=== PATIENT | female | born 1995 | race Caucasian/White ===

== ENCOUNTER → 2018-06-02 14:49 | Outpatient (CLI) | payer BC, OTHER, MEDICAID, SELFPAY ==
--- NOTE | 2018-06-02 14:51 | DI.CT.S_ITS ---
PROCEDURE: CT KIDNEY URETER BLADDER (KUB) INDICATIONS: Right flank pain TECHNIQUE: Noncontrast 5 mm thick sections acquired from the diaphragms to the symphysis. 5 mm thick coronal and sagittal reformats were then performed. For radiation dose reduction, the following was used: automated exposure control, adjustment of mA and/or kV according to patient size. COMPARISON: None. FINDINGS: Image quality: Excellent. Lung bases: Lung bases are clear. Heart size is normal. Urinary system: Both kidneys are normal in size. No kidney stones. No hydronephrosis or perinephric fat stranding. Both ureters appear non-dilated throughout their expected courses. Bladder wall thickness is normal; no calcified bladder stones. Other solid organs: Liver is normal in size. Gallbladder is within normal limits. Pancreas is normal in contours. Spleen is normal in size. No adrenal nodules. Peritoneum and bowel: Unenhanced bowel loops demonstrate normal wall thickness and caliber. No free fluid or air. Appendix is visualized and is within normal limits. Mild fecal stasis throughout the colon is seen. Nodes and vessels: No retroperitoneal or mesenteric adenopathy by size criteria. Aorta and inferior vena cava are normal in caliber. Abdominal wall: No ventral hernias. Pelvis: No free pelvic fluid. No inguinal hernias or adenopathy. Bones: No suspicious bony lesions. No vertebral body compression fractures. IMPRESSION: 1. No renal stone or hydronephrosis. Normal appearing bilateral ureters or urinary bladder. 2. Normal appendix. No bowel traction. No free fluid or free air. Dictated by: Arsen Brennan M.D. on 06/02/2018 at 15:42 Approved by: Arsen Brennan M.D. on 06/02/2018 at 15:45
== END ==
PROVIDERS: PCP Physician Assistant; Visit Provider Physician Assistant
DX: R10.9 Unspecified abdominal pain (principal)
CPT/HCPCS: 74176

== ENCOUNTER → 2018-06-12 18:38 | Outpatient (CLI) | payer BC, OTHER, MEDICAID, SELFPAY ==
--- NOTE | 2018-06-12 18:39 | DI.MRI.S_ITS ---
PROCEDURE: MR HEAD/BRAIN WO CON INDICATIONS: VISUAL HALLUCINATIONS TECHNIQUE: Noncontrast axial T1 spin echo, axial T2 fast spin echo, sagittal and axial FLAIR, coronal T2 fast spin echo, axial gradient echo, axial diffusion and ADC through the brain. COMPARISON: None. FINDINGS: Image quality: Excellent. CSF Spaces: Basal cisterns are patent. No extra-axial fluid collections. Ventricles are normal in size and shape. Brain: No intracranial masses or hemorrhage. King/white matter interface is normal. Brainstem appears normal. Diffusion-weighted images demonstrate no acute ischemic insult. No chronic ischemic insults. No GRE weighted abnormalities are identified in the brain parenchyma. Normal intravascular flow voids are present. Skull and face: Calvarium has normal marrow signal. Orbits appear normal. Sinuses: Sinuses and mastoids are clear. IMPRESSION: 1. No intracranial disease process. 2. No abnormal intracranial mass. 3. No abnormal intracranial signal. Dictated by: Priyanka Green MD, PhD on 06/13/2018 at 7:30 Approved by: Priyanka Green MD, PhD on 06/13/2018 at 17:12
== END ==
PROVIDERS: PCP Physician Assistant; Visit Provider Psychiatry & Neurology Neurology
DX: R44.1 Visual hallucinations (principal)
CPT/HCPCS: 70551

== ENCOUNTER → 2018-06-27 13:13 | Outpatient (CLI) | payer BC, OTHER, MEDICAID, SELFPAY | PROVIDERS: PCP Physician Assistant; Visit Provider Physician Assistant | DX: N89.8 Other specified noninflammatory disorders of vagina (principal); N94.9 Unspecified condition associated with female genital organs and menstrual cycle | CPT/HCPCS: 87210 ==

== ENCOUNTER → 2019-02-19 20:31 | Outpatient (CLI) | payer BC, OTHER, MEDICAID, SELFPAY ==
--- NOTE | 2019-02-19 | DI.RAD.S_ITS ---
PROCEDURE: XR CERVICAL SPINE 2V OR 3V INDICATIONS: Pain of right upper extremity, upper extremity weakness TECHNIQUE: 3 view(s) of the cervical spine were acquired. COMPARISON: None. FINDINGS: Bones: No fractures or dislocations to the T1 level. The lateral masses of C1 appear intact on the odontoid view. No suspicious bony lesions. Soft tissues: No prevertebral soft tissue swelling. IMPRESSION: Normal for age, source of current extremity weakness symptoms is not seen. Dictated by: Mele Fernandez M.D. on 02/20/2019 at 8:43 Approved by: Mele Fernandez M.D. on 02/20/2019 at 8:46
== END ==
PROVIDERS: PCP Physician Assistant; Visit Provider Student in an Organized Health Care Education/Training Program
DX: M79.601 Pain in right arm (principal); R29.898 Other symptoms and signs involving the musculoskeletal system
CPT/HCPCS: 72040

== ENCOUNTER → 2019-07-10 12:35 | Outpatient (CLI) | payer BC, SELFPAY ==
--- NOTE | 2019-07-10 | DI.US.S_ITS ---
PROCEDURE: US PELVIC COMPLETE INDICATIONS: DYSMENORRHEA, UNSPECIFIED TECHNIQUE: Real-time scanning was performed of the pelvic organs, with image documentation. Additional endovaginal scanning was necessary due to incomplete visualization of the adnexal and endometrial structures by transabdominal scanning. COMPARISON: , , PELVIC COMPLETE, 01/30/2017, 9:39. , , PELVIC COMPLETE, 01/21/2015, 11:26. FINDINGS: Transabdominal scanning: Limited scanning through the kidneys shows no hydronephrosis. No pathologic free abdominal or pelvic fluid. Endovaginal scanning: Uterus: Uterus is normal in size at the 4.2 x 5.8 x 8.2 cm. The endometrium measures 7.3 mm in combined thickness. Ovaries: The right ovary measures 3.1 x 1.9 x 2.3 cm and contains a moderately complex cyst measuring up to 2.0 x 1.7 x 1.7 cm. The left ovary measures 3.4 x 1.5 x 1.5 cm and contains a small follicular cyst measuring 1.1 cm in maximal dimension. IMPRESSION: Normal endometrial lining, no abnormal endometrial mass or fluid collection. Moderately complex right ovarian cyst, measuring 2.0 cm in maximal dimension. Followup pelvic ultrasound in 6-8 weeks is recommended to confirm resolution of this finding. Dictated by: Mele Fernandez M.D. on 07/10/2019 at 15:03 Approved by: Mele Fernandez M.D. on 07/10/2019 at 15:05
== END ==
PROVIDERS: PCP Student in an Organized Health Care Education/Training Program; Referring Provider Student in an Organized Health Care Education/Training Program; Visit Provider Student in an Organized Health Care Education/Training Program
DX: N94.6 Dysmenorrhea, unspecified (principal); N83.291 Other ovarian cyst, right side; N83.02 Follicular cyst of left ovary
CPT/HCPCS: 76830; 76856

== ENCOUNTER → 2019-07-13 13:44 | Outpatient (CLI) | payer BC, SELFPAY ==
[2019-07-13 15:29] LABS: Cancer Antigen 125 14.4 U/mL (0-35)
== END ==
PROVIDERS: PCP Student in an Organized Health Care Education/Training Program; Referring Provider Student in an Organized Health Care Education/Training Program; Visit Provider Student in an Organized Health Care Education/Training Program
DX: Z12.73 Encounter for screening for malignant neoplasm of ovary (principal); N94.6 Dysmenorrhea, unspecified
CPT/HCPCS: 36415; 86304

== ENCOUNTER → 2019-08-21 10:37 | Outpatient (CLI) | payer BC, OTHER, MEDICAID, SELFPAY ==
--- NOTE | 2019-08-21 | DI.US.S_ITS ---
PROCEDURE: US PELVIC COMPLETE INDICATIONS: DYSMENORRHEA, UNSPECIFIED TECHNIQUE: Real-time scanning was performed of the pelvic organs, with image documentation. Additional endovaginal scanning was necessary due to incomplete visualization of the adnexal and endometrial structures by transabdominal scanning. COMPARISON: [facility], PELVIC COMPLETE, 01/30/2017, 9:39. [facility], PELVIC COMPLETE, 01/21/2015, 11:26. [facility], PELVIC COMPLETE, 09/24/2013, 13:44. [facility], PELVIC COMPLETE, 04/19/2008, 23:48. [facility], US PELVIC COMPLETE, 07/10/2019, 12:59. FINDINGS: Transabdominal scanning: A mild amount of free pelvic fluid is seen, which is considered to be within physiologic limits. Limited scanning through the kidneys shows no hydronephrosis. Endovaginal scanning: Uterus: Uterus is normal in size at 8.7 x 4.1 x 5.1 cm. The endometrium measures 1-2 mm in combined thickness. Ovaries: The right ovary measures 3.1 x 1.9 x 2 cm. The left ovary measures 2.8 x 1.5 x 1.8 cm. The ovaries have a normal sonographic appearance, with physiologic appearing follicular cysts seen on each side. No adnexal masses are seen. IMPRESSION: Pelvic ultrasound within normal limits. The previously seen right ovarian complex cyst is no longer seen. Dictated by: Polo Nielson M.D. on 08/21/2019 at 10:40 Approved by: Polo Nielson M.D. on 08/21/2019 at 10:42
== END ==
PROVIDERS: PCP Student in an Organized Health Care Education/Training Program; Referring Provider Student in an Organized Health Care Education/Training Program; Visit Provider Student in an Organized Health Care Education/Training Program
DX: N94.6 Dysmenorrhea, unspecified (principal)
CPT/HCPCS: 76830; 76856

== ENCOUNTER → 2019-09-28 19:18 | Outpatient (ROUT) | payer BC, OTHER, MEDICAID, SELFPAY ==
[2019-09-28 20:29] LABS: Add Manual Diff / Slide Review NO; Basophils Absolute Auto 100 /uL (0-100); Basophils Percent Auto 0.8 % (0-2); Eosinophils Absolute Auto 100 /uL (0-450); Eosinophils Percent Auto 1.6 % (2-4); Hematocrit 41.3 % (36-46); Hemoglobin 13.8 g/dL (12.0-16.0); Lymphocytes Absolute Auto 2000 /uL (1100-4500); Lymphocytes Percent Auto 27.2 % (25-40); Mean Corpuscular HGB Conc 33.4 % (30-36); Mean Corpuscular Hemoglobin 30.2 PG (26-34); Mean Corpuscular Volume 90.5 fL (80-100); Monocytes Absolute Auto 600 /uL (0-900); Neutrophils Absolute Auto 4600 /uL (1500-7000); Neutrophils Percent Auto 62.4 % (50-75); Platelet Count 250 X10^3/uL (150-400); Red Blood Cell Count 4.57 X10^6/uL (4.0-5.2); Red Cell Distribution Width 12.6 % (11.6-14.8); White Blood Cell Count 7.3 X10^3/uL (4.5-11.0)
[2019-09-28 20:41] LABS: Alanine Aminotransferase 12 IU/L (<35); Albumin 4.5 g/dL (3.5-5.0); Albumin Globulin Ratio 1.8 (1.0-2.8); Alkaline Phosphatase 62 U/L (38-126); Aspartate Aminotransferase 23 IU/L (14-36); BUN Creatinine Ratio 12.5 (6-22); Blood Urea Nitrogen 7 mg/dL (7-17); Calcium 10.1 mg/dL (8.4-10.2); Carbon Dioxide 26 mmol/L (22-32); Chloride 105 mmol/L (98-107); Estimated Glomerular Filt Rate > 60.0 mL/min (>60); Globulin 2.5 g/dL (1.7-4.1); Glucose 58 mg/dL (70-100); HEMOLYSIS < 15 (0-50); Potassium 4.1 mmol/L (3.4-5.1); Sodium 139 mmol/L (137-145)
[2019-09-28 21:08] LABS: TSH w/ Reflex to FT4 1.73 uIU/mL (0.47-4.68)
== END ==
PROVIDERS: PCP Student in an Organized Health Care Education/Training Program; Visit Provider Student in an Organized Health Care Education/Training Program
DX: R00.2 Palpitations (principal); R42 Dizziness and giddiness
CPT/HCPCS: 80053; 84443; 85025

== ENCOUNTER → 2020-04-28 09:03 | Outpatient (CLI) | payer OTHER, MEDICAID, SELFPAY ==
[2020-04-28 15:59] LABS: Rubella Antibody IgG 18.1 IU/mL (>15)
[2020-04-29 11:56] LABS: Mumps Virus IgG Antibody <9.0 AU/mL (Immune >10.9)
[2020-04-29 19:36] LABS: Varicella IgM Antibody <0.91 index (0.00-0.90)
[2020-05-01 21:36] LABS: QuantiFERON Mitogen Value 9.49 IU/mL (.); QuantiFERON Nil Value 0.13 IU/mL (.); QuantiFERON TB Gold Plus Negative (Negative); QuantiFERON TB1 Ag Value 0.22 IU/mL (.); QuantiFERON TB2 Ag Value 0.12 IU/mL (.)
[2020-05-03 20:52] LABS: Diphtheria IgG Ab 0.33 IU/mL (<0.10); Tetanus IgG Ab 1.83 IU/mL (<0.10)
== END ==
PROVIDERS: PCP Student in an Organized Health Care Education/Training Program; Referring Provider Student in an Organized Health Care Education/Training Program; Visit Provider Student in an Organized Health Care Education/Training Program
DX: Z11.59 Encounter for screening for other viral diseases (principal)
CPT/HCPCS: 36415; 86480; 86648; 86735; 86762; 86765; 86774; 86787; 87517

== ENCOUNTER → 2020-04-29 13:18 | Outpatient (CLI) | payer OTHER, MEDICAID, SELFPAY ==
[2020-04-29 14:48] LABS: Add Manual Diff / Slide Review NO; Basophils Absolute Auto 100 /uL (0-100); Basophils Percent Auto 0.7 % (0-2); Eosinophils Absolute Auto 100 /uL (0-450); Eosinophils Percent Auto 1.2 % (2-4); Hematocrit 39.8 % (36-46); Hemoglobin 13.6 g/dL (12.0-16.0); Lymphocytes Absolute Auto 1800 /uL (1100-4500); Lymphocytes Percent Auto 22.9 % (25-40); Mean Corpuscular HGB Conc 34.2 % (30-36); Mean Corpuscular Hemoglobin 30.5 PG (26-34); Mean Corpuscular Volume 89.2 fL (80-100); Monocytes Absolute Auto 700 /uL (0-900); Monocytes Percent Auto 8.6 % (3-14); Neutrophils Absolute Auto 5300 /uL (1500-7000); Neutrophils Percent Auto 66.6 % (50-75); Platelet Count 241 X10^3/uL (150-400); Red Blood Cell Count 4.47 X10^6/uL (4.0-5.2); Red Cell Distribution Width 13.4 % (11.6-14.8); White Blood Cell Count 7.9 X10^3/uL (4.5-11.0)
[2020-04-29 15:22] LABS: Alanine Aminotransferase 12 IU/L (<35); Albumin 4.6 g/dL (3.5-5.0); Albumin Globulin Ratio 1.6 (1.0-2.8); Alkaline Phosphatase 53 U/L (38-126); Amylase 115 U/L (30-110); Aspartate Aminotransferase 25 IU/L (14-36); BUN Creatinine Ratio 16.9 (6-22); Bilirubin Total 1.5 mg/dL (0.2-1.3); Blood Urea Nitrogen 10 mg/dL (7-17); Calcium 9.8 mg/dL (8.4-10.2); Carbon Dioxide 26 mmol/L (22-32); Chloride 104 mmol/L (98-107); Estimated Glomerular Filt Rate > 60.0 mL/min (>60); Globulin 2.8 g/dL (1.7-4.1); Glucose 90 mg/dL (70-100); HEMOLYSIS < 15 (0-50); Lipase 129 U/L (23-300); Potassium 4.1 mmol/L (3.4-5.1); Sodium 138 mmol/L (137-145); Total Protein 7.4 g/dL (6.3-8.2)
== END ==
PROVIDERS: PCP Student in an Organized Health Care Education/Training Program; Referring Provider Student in an Organized Health Care Education/Training Program; Visit Provider Student in an Organized Health Care Education/Training Program
DX: R10.9 Unspecified abdominal pain (principal)
CPT/HCPCS: 36415; 80053; 82150; 83690; 85025

== ENCOUNTER → 2020-05-03 15:20 | Outpatient (CLI) | payer OTHER, MEDICAID, SELFPAY ==
--- NOTE | 2020-05-03 | DI.CT.S_ITS ---
PROCEDURE: CT ABDOMEN PELVIS W CON INDICATIONS: unspecified abdominal pain TECHNIQUE: After the administration of oral and intravenous contrast, 5 mm thick sections acquired from the diaphragms to the symphysis. 5 mm thick coronal and sagittal reformats were performed. For radiation dose reduction, the following was used: automated exposure control, adjustment of mA and/or kV according to patient size. COMPARISON: [facility], US, US PELVIC COMPLETE, 08/21/2019, 10:55. [facility], US, US PELVIC COMPLETE, 07/10/2019, 12:59. [facility], US, US ABDOMEN COMPLETE, 09/01/2018, 17:39. [facility], CT, CT KIDNEY URETER BLADDER (KUB), 06/02/2018, 15:07. [facility], CT, ABDOMEN/PELVIS WITH CONTRAST, 05/23/2017, 8:34. FINDINGS: Image quality: Excellent. ABDOMEN: Lung bases: Lung bases are clear. Heart size is normal. Solid organs: Liver is normal in size and enhancement. Gallbladder is normal. Biliary system is non-dilated. Pancreas enhances normally. Spleen is normal in size and enhancement. No adrenal nodules. Kidneys are normal in size and enhancement, without hydronephrosis. Peritoneum and bowel: Stomach, small bowel, and colon loops are normal in caliber and wall thickness. There is a moderate amount of stool in colon. No free fluid or air. Nodes and vessels: No retroperitoneal or mesenteric adenopathy. Aorta and inferior vena cava are normal in caliber. Miscellaneous: No ventral hernias. PELVIS: Genitourinary: Bladder wall thickness is normal. There is fluid within the endometrial cavity, which could be related to menses. Ovaries are not well seen. No free fluid in pelvis. Miscellaneous: No inguinal hernias or adenopathy. Bones: No suspicious bony lesions. No vertebral body compression fractures. IMPRESSION: 1. Moderate amount of stool in colon 2. Otherwise normal exam. Dictated by: Tomasa Littlejohn M.D. on 05/03/2020 at 16:52 Approved by: Tomasa Littlejohn M.D. on 05/03/2020 at 17:55
== END ==
PROVIDERS: PCP Student in an Organized Health Care Education/Training Program; Referring Provider Student in an Organized Health Care Education/Training Program; Visit Provider Student in an Organized Health Care Education/Training Program
DX: R10.9 Unspecified abdominal pain (principal)
CPT/HCPCS: 74177; Q9967

== ENCOUNTER 2020-10-17 13:07 | Emergency (ER) | payer OTHER, MEDICAID, SELFPAY ==
--- NOTE | 2020-10-17 | DI.RAD.S_ITS ---
PROCEDURE: XR CHEST 2V INDICATIONS: SAYS CHEST PAIN FROM COVID SHOT (LAST WEEK) TECHNIQUE: 2 views of the chest were acquired. COMPARISON: [facility], , CHEST 2 VIEW, 12/30/2015, 13:57. FINDINGS: Surgical changes and devices: None. Lungs and pleura: Lungs are clear. No pleural effusions or pneumothorax. Mediastinum: Mediastinal contours are normal. Heart size is normal. Bones and chest wall: No suspicious bony abnormalities. Soft tissues appear unremarkable. IMPRESSION: No acute cardiopulmonary abnormality. Dictated by: Jamel Rudd M.D. on 10/17/2020 at 13:52 Approved by: Jamel Rudd M.D. on 10/17/2020 at 13:53
[2020-10-17 13:15] VITALS: BP 121/68; PULSE 66; RESP 18; TEMP 36.6; O2SAT 100; BMI 21.9
[2020-10-17 13:45] LABS: Add Manual Diff / Slide Review NO; Basophils Absolute Auto 100 /uL (0-100); Basophils Percent Auto 1.1 % (0-2); Eosinophils Absolute Auto 100 /uL (0-450); Eosinophils Percent Auto 1.2 % (2-4); Hemoglobin 13.8 g/dL (12.0-16.0); Lymphocytes Absolute Auto 2400 /uL (1100-4500); Lymphocytes Percent Auto 34.1 % (25-40); Mean Corpuscular HGB Conc 33.7 % (30-36); Mean Corpuscular Hemoglobin 30.3 PG (26-34); Mean Corpuscular Volume 89.9 fL (80-100); Monocytes Absolute Auto 700 /uL (0-900); Monocytes Percent Auto 9.4 % (3-14); Neutrophils Absolute Auto 3800 /uL (1500-7000); Neutrophils Percent Auto 54.2 % (50-75); Platelet Count 307 X10^3/uL (150-400); Red Blood Cell Count 4.56 X10^6/uL (4.0-5.2); Red Cell Distribution Width 12.7 % (11.6-14.8)
[2020-10-17 14:01] LABS: Alanine Aminotransferase 13 IU/L (<35); Albumin 4.8 g/dL (3.5-5.0); Albumin Globulin Ratio 1.5 (1.0-2.8); Alkaline Phosphatase 55 U/L (38-126); Aspartate Aminotransferase 27 IU/L (14-36); BUN Creatinine Ratio 21.4 (6-22); Bilirubin Total 1.8 mg/dL (0.2-1.3); Blood Urea Nitrogen 12 mg/dL (7-17); Calcium 10.1 mg/dL (8.4-10.2); Carbon Dioxide 26 mmol/L (22-32); Chloride 105 mmol/L (98-107); Creatine Kinase 53 U/L (30-135); Estimated Glomerular Filt Rate > 60.0 mL/min (>60); Globulin 3.1 g/dL (1.7-4.1); Glucose 84 mg/dL (70-100); HEMOLYSIS < 15 (0-50); Lipase 116 U/L (23-300); Potassium 3.9 mmol/L (3.4-5.1); Sodium 141 mmol/L (137-145); Total Protein 7.9 g/dL (6.3-8.2)
[2020-10-17 14:13] LABS: Troponin I < 0.012 ng/mL (0.01-0.034)
[2020-10-17 14:41] VITALS: BP 122/57; PULSE 61; RESP 17; O2SAT 100
[2020-10-17 14:42] VITALS: PULSE 59; O2SAT 100
[2020-10-17 15:00] VITALS: PULSE 68; O2SAT 100
--- NOTE | 2020-10-17 15:11 | ED_ITS ---
HPI - Chest Pain General Chief Complaint: Chest Pain Stated Complaint: Chest pain/SOB- post covid vac dose 2 Time Seen by Provider: 10/17/20 14:45 Source: patient Mode of arrival: Ambulatory History of Present Illness HPI narrative: Patient is a 25-year-old female. Approximately 10 days ago she received her 2nd Moderna COVID-19 vaccine. She stated that this morning she started having some chest discomfort and some shortness of breath. That has since gotten better. She has had issues with low blood pressure and tachycardia and passing out in the past but she did not pass out this morning. Has not tried anything for symptoms prior to arrival. She is under the care of cardiology. Related Data Home Medications Medication Instructions Recorded Confirmed No Known Home Medications 10/17/20 10/17/20 Previous Rx's Medication Instructions Recorded Breast Pump - Double Electric ea TD Q6H #1 10/12/16 Allergies Allergy/AdvReac Type Severity Reaction Status Date / Time Sulfa (Sulfonamide Allergy Severe SWOLLEN Verified 10/17/20 13:43 Antibiotics) THROAT [SULFA (SULFONAMIDE ANTIBIOTICS)] clindamycin [CLINDAMYCIN] Allergy Unknown SWELLING Verified 10/17/20 13:43 (HAPPENED WHEN SHE WAS A CHILD) Review of Systems Constitutional Constitutional: Denies fever(s) Cardiovascular Cardiovascular: Reports as per HPI Respiratory Respiratory: Reports as per HPI Gastrointestinal Gastrointestinal: Reports system reviewed and no additional complaints, except as documented Integumentary/Breasts Skin/Breast: Reports system reviewed and no additional complaints, except as documented Neurologic Neurologic: Reports system reviewed and no additional complaints, except as documented Hematologic/Lymphatic On Anticoagulants: No Patient History Medical History Alcohol intoxication Chronic fatigue Depression Suicidal ideation Social History Smoking Status: Never smoker Smoking Status: Never smoker alcohol intake frequency: a few times a month Substance Use Type: does not use Exam Initial Vital Signs Initial Vital Signs: Vital Signs Temperature 97.9 F 10/17/20 13:15 Pulse Rate 66 10/17/20 13:15 Respiratory Rate 18 10/17/20 13:15 Blood Pressure 121/68 10/17/20 13:15 Pulse Oximetry 100 10/17/20 13:15 Const General: cooperative and comfortable HENMT Head: normal to inspection and normocephalic Resp Effort & Inspection: normal respiratory effort Auscultation: clear to auscultation bilaterally Cardio Rate: regular rate Rhythm: regular rhythm GI Inspection: normal to inspection Skin General: no rashes or lesions noted Neuro General: patient alert, patient awake and moves all extremities Extrem General: normal to inspection and capillary refill normal Psych Appearance: grossly normal and well kempt Course Orders Ordered: ED Orders 10/17/20 13:24 EKG-12 Lead Stat 10/17/20 13:30 Complete Blood Count AUTO DIFF Stat Comprehensive Metabolic Panel Stat Lipase Stat Troponin & CK Cardiac Panel Stat Vital Signs Vital signs: Vital Signs - 8 hr 10/17/20 13:15 10/17/20 14:41 Temperature 97.9 F Pulse Rate 66 61 Respiratory Rate 18 17 Blood Pressure 121/68 122/57 L Pulse Oximetry 100 100 MDM - Chest Pain Lab Data Attestation: I reviewed the patient's lab results. Result diagrams: 10/17/20 13:30 10/17/20 13:30 Labs: Lab Results 10/17/20 10/17/20 Range/Units 13:30 13:30 WBC 7.0 (4.5-11.0) X10^3/uL RBC 4.56 (4.0-5.2) X10^6/uL Hgb 13.8 (12.0-16.0) g/dL Hct 41.0 (36-46) % MCV 89.9 (80-100) fL MCH 30.3 (26-34) PG MCHC 33.7 (30-36) % RDW 12.7 (11.6-14.8) % Plt Count 307 (150-400) X10^3/uL Neut % (Auto) 54.2 (50-75) % Lymph % (Auto) 34.1 (25-40) % [place] % (Auto) 9.4 (3-14) % Eos % (Auto) 1.2 L (2-4) % Baso % (Auto) 1.1 (0-2) % Neut # (Auto) 3800 (9261-6000) /uL Lymph # (Auto) 2400 (8627-2124) /uL [place] # (Auto) 700 (0-900) /uL Eos # (Auto) 100 (0-450) /uL Baso # (Auto) 100 (0-100) /uL Sodium 141 (137-145) mmol/L Potassium 3.9 (3.4-5.1) mmol/L Chloride 105 (98-107) mmol/L Carbon Dioxide 26 (22-32) mmol/L BUN 12 (7-17) mg/dL Creatinine 0.56 (0.52-1.04) mg/dL Estimated GFR > 60.0 (>60) mL/min BUN/Creatinine Ratio 21.4 (6-22) Glucose 84 (70-100) mg/dL Calcium 10.1 (8.4-10.2) mg/dL Total Bilirubin 1.8 H (0.2-1.3) mg/dL AST 27 (14-36) IU/L ALT 13 (<35) IU/L Alkaline Phosphatase 55 (38-126) U/L Total Creatine Kinase 53 (30-135) U/L CK-MB (CK-2) TNP CK-MB (CK-2) Rel Index TNP Troponin I < 0.012 (0.01-0.034) ng/mL Total Protein 7.9 (6.3-8.2) g/dL Albumin 4.8 (3.5-5.0) g/dL Globulin 3.1 (1.7-4.1) g/dL Albumin/Globulin Ratio 1.5 (1.0-2.8) Lipase 116 (23-300) U/L Imaging Data Chest x-ray: Radiologist's Impression: [address] [id number] ReportSigned Patient: Erica Ferrell LMR#: [id number]: [id number]:[id number]/Sex: 25 / FDate of Service: 10/17/20Loc: EDAccession Number: [id number] Procedure: XR chest 2V Ordering Provider: Eduardo Egan D.O. PROCEDURE: XR CHEST 2V INDICATIONS: SAYS CHEST PAIN FROM COVID SHOT (LAST WEEK) TECHNIQUE: 2 views of the chest were acquired. COMPARISON: [facility], CHEST 2 VIEW, 12/30/2015, 13:57. FINDINGS: Surgical changes and devices: None. Lungs and pleura: Lungs are clear. No pleural effusions or pneumothorax. Mediastinum: Mediastinal contours are normal. Heart size is normal. Bones and chest wall: No suspicious bony abnormalities. Soft tissues appear unremarkable. IMPRESSION: No acute cardiopulmonary abnormality. Dictated by: Jamel Rudd M.D. on 10/17/2020 at 13:52 Approved by: Jamel Rudd M.D. on 10/17/2020 at 13:53 ECG Data Attestation: I personally reviewed and interpreted this ECG as follows: Interpretation: Sinus rhythm Ventricular rate is 66 Normal axis Normal QRS Normal QTC Nonspecific ST T wave changes MDM Narrative Medical decision making narrative: Patient is nontoxic. Low suspicion for ACS. Chest x-ray EKG and labs unremarkable. Vital signs unremarkable. Consider pericarditis however her labs and EKG knee exam are not consistent with this. No indications for pneumonia. No indication for antibiotics. Provided reassurance to the patient. She was given return precautions. She expressed understanding and agreement. Discharge Plan Departure Patient Disposition: Home Clinical Impression: Atypical chest pain Instructions: DI for Atypical Chest Pain Activity Restrictions/Additional Instructions: Continue all of your medications as directed. Contact your primary doctor for follow-up. You can take anti-inflammatories for any discomfort. Return to the emergency department for any new or worsening symptoms Prescriptions: No Action Breast Pump - Double Electric TD Q6H Qty: 1 RF: 0 No Known Home Medications RF: 0
== END 2020-10-17 15:21 | disposition home or self-care (01) ==
PROVIDERS: Emergency Provider Emergency Medicine
DX: R07.89 Other chest pain (principal); R06.02 Shortness of breath
CPT/HCPCS: 36415; 71046; 80053; 82550; 83690; 84484; 85025; 93005; 93010; 99283; 99284

== ENCOUNTER → 2021-01-04 14:06 | Outpatient (CLI) | payer OTHER, MEDICAID, SELFPAY ==
--- NOTE | 2021-01-04 14:07 | DI.US.S_ITS ---
PROCEDURE: US PELVIC COMPLETE INDICATIONS: FEMALE INFERTILITY TECHNIQUE: Real-time scanning was performed of the pelvic organs, with image documentation. Additional endovaginal scanning was necessary due to incomplete visualization of the adnexal and endometrial structures by transabdominal scanning. COMPARISON: [facility], , US PELVIC COMPLETE, 08/21/2019, 10:55. FINDINGS: Uterus: Uterus is normal in size at 9.3 x 4.5 x 5.8 cm. The endometrium measures 13 mm in combined thickness. Homogeneous uterine echotexture. No focal uterine mass lesions. Uterus is anteverted. Ovaries: Right ovary measures 3.1 x 1.7 x 1.7 cm. No suspicious ovarian/adnexal mass. Left ovary measures 2.8 x 2.0 x 2.6 cm. There is a solid-appearing hypoechoic lesion in the left ovary measuring 1.5 x 1.2 x 1.7 cm. There is some mild peripheral vascularity. Other: No pathologic free abdominal or pelvic fluid. IMPRESSION: 1. A 1.5 x 1.2 x 1.7 cm solid lesion within the left ovary which may represent an endometrioma, hemorrhagic cyst, or dermoid. Recommend short interval follow-up pelvic ultrasound in 6-12 weeks to document stability versus resolution. 2. Otherwise, unremarkable sonographic evaluation of the pelvis. Dictated by: Zbigniew Cooney M.D. on 01/04/2021 at 15:27 Approved by: Zbigniew Cooney M.D. on 01/04/2021 at 15:36
== END ==
PROVIDERS: PCP Student in an Organized Health Care Education/Training Program; Referring Provider Student in an Organized Health Care Education/Training Program; Visit Provider Student in an Organized Health Care Education/Training Program
DX: N97.9 Female infertility, unspecified (principal); N83.9 Noninflammatory disorder of ovary, fallopian tube and broad ligament, unspecified
CPT/HCPCS: 76856

== ENCOUNTER → 2021-02-05 13:48 | Outpatient (CLI) | payer OTHER, MEDICAID, SELFPAY ==
--- NOTE | 2021-02-05 13:49 | DI.RAD.S_ITS ---
PROCEDURE: XR LUMBAR SPINE 2-3V INDICATIONS: hip pain TECHNIQUE: 3 views of the lumbar spine were acquired. COMPARISON: [facility], CT, CT ABDOMEN PELVIS W CON, 05/03/2020, 16:14. FINDINGS: Bones: 5 [id number] vertebrae are present. There is normal bony alignment. No vertebral body compression fractures. No suspicious bony lesions. Soft tissues: Overlying bowel gas pattern is normal. No suspicious soft tissue calcifications. IMPRESSION: No significant abnormality. Dictated by: David Pereyra M.D. on 02/06/2021 at 8:50 Approved by: David Pereyra M.D. on 02/06/2021 at 8:51
--- NOTE | 2021-02-05 13:49 | DI.RAD.S_ITS ---
PROCEDURE: XR HIP W PEL IF DONE RT 2V INDICATIONS: hip pain TECHNIQUE: AP pelvis with lateral view(s) of the right hip(s). COMPARISON: [facility], CT, CT ABDOMEN PELVIS W CON, 05/03/2020, 16:14. FINDINGS: Bones: No fractures or dislocations. Pelvic ring appears intact. No suspicious bony lesions. Soft tissues: The visualized bowel gas pattern is normal. Pelvic calcifications, likely representing phleboliths. IMPRESSION: No significant abnormality. Dictated by: David Pereyra M.D. on 02/06/2021 at 8:48 Approved by: David Pereyra M.D. on 02/06/2021 at 8:50
== END ==
PROVIDERS: PCP Student in an Organized Health Care Education/Training Program; Referring Provider Nurse Practitioner Family; Visit Provider Nurse Practitioner Family
DX: M25.551 Pain in right hip (principal); G89.29 Other chronic pain
CPT/HCPCS: 72100; 73502

== ENCOUNTER → 2021-02-20 18:00 | Outpatient (CLI) | payer OTHER, MEDICAID, SELFPAY ==
[2021-02-20 19:10] LABS: COVID19 -Nasal RAPID Negative (Negative)
== END ==
PROVIDERS: Visit Provider Physician Assistant
DX: Z20.822 Contact with and (suspected) exposure to COVID-19 (principal)
CPT/HCPCS: 87635

== ENCOUNTER 2021-03-15 14:54 | Outpatient (RCR) | payer OTHER, MEDICAID, SELFPAY ==
--- NOTE | 2021-03-15 16:19 | PT.OIE ---
Current Diagnoses Other chronic pain (03/15/21) Pain in right hip (03/15/21) Past Medical History (Last Reviewed 02/20/21 @ 18:11 by Denia Garcia PA-C) Alcohol intoxication Chronic fatigue Depression Suicidal ideation Visit Care Team Role Provider Type Margarita Bartholomew MD Primary Care Provider Non-Staff Specialty: Family Practice Address: [address] [place] [address], [phone] Email: WENDY Guerrero Attending Provider Physician Referring Provider Specialty: Family Practice Address: [facility], [facility] [place], [address] Phone: Fax: Email: [email or web address] Physical Therapy Initial Evaluation PT-OP-A Visit Information Start: 02/08/21 12:58 Freq: Status: Active Protocol: Document 03/15/21 15:15 DCW (Rec: 03/15/21 16:19 DCW [id number]) Out-Patient Physical Therapy Visit Information Visit Information Visit Type Initial Evaluation Visit Start Time 15:15 Visit Stop Time 15:45 Total Visit Minutes 30 Visit Number 1 Number of [employer] Visits 0 Evaluation Information Evaluation Date 03/15/21 PT-OP-B Current Condition Start: 02/08/21 12:58 Freq: Status: Active Protocol: Document 03/15/21 15:15 DCW (Rec: 03/15/21 16:19 DCW [id number]) Current Condition History of Current Condition Onset Date 10 year history Current Complaints Occasional right posterior hip pain History of Current Condition Pt is a 26 year old female presenting with a 10 year history of occasional right posterior hip pain. Reports she used to run on a treadmill a lot when in high school, and at one time felt like I got shot with an arrow in the hip, and couldn't get out of bed or move without pain for months. Ever since that time, pt get occasional flair-ups of pain in the same location. Her most recent flair-up was in January, which is when she got her referral for PT, however in the mean time she has done a course of steroids and feels quite a bit better. Pt was considering canceling, however decided it would be helpful to come to therapy and find out if there was anything she could do to either prevent it from recurring, or finding out what she should do if it does return. Prior Treatments and Tests Lumbar x-ray: IMPRESSION: No significant abnormality. per David Pereyra M.D. on R Hip x-ray: IMPRESSION: No significant abnormality. per David Pereyra M.D. on 02/06 Prior Functional Status Baseline Function- ADL's Independent Baseline Function- Mobility Independent PT-OP-C Subjective Start: 02/08/21 12:58 Freq: Status: Active Protocol: Document 03/15/21 15:15 DCW (Rec: 03/15/21 16:19 DCW [id number]) OP-PT Subjective Patient Comments Patient Comments There isn't really anything I seem to do that causes a flair-up, just walking around or sometimes turning in bed. Patient Reported Progress Improving Patient Questionnaires Lower Extremity Functional Scale LEFS Score 71/80 = 88.75% LEFS Impairment 1 to 19% Impaired (Score 63-79 ) OP-PT Pain Assessment Pain Assessment Grid Paper Pain Assessment Grid Completed Yes Location Right Posterior Hip Intensity 4 Scale Used Numeric (0 - 10) Variations/Patterns Can get as high as an 9/10 during flair-ups PT-OP-F Manual Assessment Start: 03/15/21 15:54 Freq: Status: Active Protocol: Document 03/15/21 15:15 DCW (Rec: 03/15/21 16:19 DCW [id number]) Manual Assessments Soft Tissue Assessment Soft Tissue Mobility Assessment Mild-moderate increased tone along right piriformis, tenderness to palpation 1/4: Complaint of pain. Joint Mobility Assessment Joint Mobility Assessment Passive motion of hip appears to be completely WNL PT-OP-K Range of Motion Start: 02/08/21 12:58 Freq: Status: Active Protocol: Document 03/15/21 15:15 DCW (Rec: 03/15/21 16:19 DCW [id number]) Lumbar Spine Range of Motion Lumbar Spine Active Comments Lumbar ROM entirely WNL Hip Goniometric Range of Motion Hip ROM Limitations Comments Right hip ROM WNL PT-OP-L Special Tests Start: 03/15/21 15:54 Freq: Status: Active Protocol: Document 03/15/21 15:15 DCW (Rec: 03/15/21 16:19 DCW [id number]) Special Tests Hip Special Tests Piriformis Test Results Mild note of some R tightness Lateral SI compression Test Results Negative Straight Leg Raise Test Results Negative Scour Test Test Results Negative Posterior Labral Test Test Results Negative Anterior Labral Test Test Results Negative PALAK Test Results Negative PT-OP-M Strength Start: 02/08/21 12:58 Freq: Status: Active Protocol: Document 03/15/21 15:15 DCW (Rec: 03/15/21 16:19 DCW [id number]) Hip Strength Hip Manual Muscle Testing Right Flexion (L2) 5 Normal Extension (S1) 5 Normal Abduction 5 Normal External Rotation 4 Good Internal Rotation 4 Good Left Flexion (L2) 5 Normal Extension (S1) 5 Normal Abduction 5 Normal External Rotation 5 Normal Internal Rotation 5 Normal PT-OP-Q Treatments Start: 02/08/21 12:58 Freq: Status: Active Protocol: Document 03/15/21 15:15 DCW (Rec: 03/15/21 16:19 DCW [id number]) Therapeutic Exercises Supine Exercises 1 Supine Exercise Name Piriformis stretch Side right Comments Knee to opposite shoulder, Figure-4 Sidelying Exercises 2 Sidelying Exercise Name Reverse clamshell Side right 1 Sidelying Exercise Name Clamshell Side right Sitting Exercises 2 Sitting Exercise Name Self-STM piriformis Equipment Used Tennis ball 1 Sitting Exercise Name Piriformis stretch Side right Comments Seated figure-4 PT-OP-T Assessment and Plan Start: 02/08/21 12:58 Freq: Status: Active Protocol: Document 03/15/21 15:15 DCW (Rec: 03/15/21 16:19 DCW [id number]) Physical Therapy Assessment Rehab Potential Rehabilitation Potential Excellent Evaluation Complexity Number of Personal Factors/Comorbidities 0 Number of Body Systems Impaired 1-2 Clinical Presentation at Evaluation Stable Impairments Impairments Soft Tissue Mobility,Strength, Tone Assessment Summary Assessment Pt presents today with a largely negative initial examination, may have some mild signs of involvement or right piriformis spasm. Does demonstrate some general weakness in right hip IR/ER, 4 /5 vs MMT testing of 5/5 in all other hip planes. Some mild-mod tone in right piriformis, may be experiencing infrequent piriformis spasm causing her posterior hip pain. Discussed difficulty performing differential diagnosis when she is not showing flair-ups, pt is understanding. Demonstrated and reviewed HEP involving piriformis stretching and strengthening to help try to prevent further spasm, or to improve mobility during flair-up. As pt currently is asymptomatic, unlikely to benefit from further skilled PT at this time, but pt is agreeable to return for a new evaluation if she does have another flair- up. Will keep chart open for ~ 2-3 weeks in case pt has any concerns or questions. Pt understands she will require a new referral in order to return after that. Physical Therapy Plan Frequency and Duration Frequency of Treatment Every Other Week Duration of Treatment Three weeks Plan of Care Start Date 03/15/21 Plan of Care End Date 04/05/21 Therapeutic Interventions Therapeutic Interventions Home Exercise Program,Patient/ Caregiver Education,Self-Care/ Home Management,Soft Tissue Mobilization,Therapeutic Exercises Next Visit Focus/Plan Next Note Type Treatment Note Next Visit Plan HEP, stretching, STM
--- NOTE | 2021-03-15 16:19 | PT.OPPOC ---
Physical, Occupational & Speech Therapy At [facility] Current Diagnoses Other chronic pain (03/15/21) Pain in right hip (03/15/21) Visit Care Team Role Provider Type Margarita Bartholomew MD Primary Care Provider Non-Staff Specialty: Family Practice Address: [facility] [place], [address] Email: WENDY Guerrero Attending Provider Physician Referring Provider Specialty: Family Practice Address: [facility], [facility], [place], [address] Phone: Fax: Email: [email or web address] Plan Of Care PT-OP-T Assessment and Plan Start: 02/08/21 12:58 Freq: Status: Active Protocol: Document 03/15/21 15:15 DCW (Rec: 03/15/21 16:19 DCW [id number]) Physical Therapy Assessment Rehab Potential Rehabilitation Potential Excellent Evaluation Complexity Number of Personal Factors/Comorbidities 0 Number of Body Systems Impaired 1-2 Clinical Presentation at Evaluation Stable Impairments Impairments Soft Tissue Mobility,Strength, Tone Assessment Summary Assessment Pt presents today with a largely negative initial examination, may have some mild signs of involvement or right piriformis spasm. Does demonstrate some general weakness in right hip IR/ER, 4 /5 vs MMT testing of 5/5 in all other hip planes. Some mild-mod tone in right piriformis, may be experiencing infrequent piriformis spasm causing her posterior hip pain. Discussed difficulty performing differential diagnosis when she is not showing flair-ups, pt is understanding. Demonstrated and reviewed HEP involving piriformis stretching and strengthening to help try to prevent further spasm, or to improve mobility during flair-up. As pt currently is asymptomatic, unlikely to benefit from further skilled PT at this time, but pt is agreeable to return for a new evaluation if she does have another flair- up. Will keep chart open for ~ 2-3 weeks in case pt has any concerns or questions. Pt understands she will require a new referral in order to return after that. Physical Therapy Plan Frequency and Duration Frequency of Treatment Every Other Week Duration of Treatment Three weeks Plan of Care Start Date 03/15/21 Plan of Care End Date 04/05/21 Therapeutic Interventions Therapeutic Interventions Home Exercise Program,Patient/ Caregiver Education,Self-Care/ Home Management,Soft Tissue Mobilization,Therapeutic Exercises Next Visit Focus/Plan Next Note Type Treatment Note Next Visit Plan HEP, stretching, STM Plan of Care Dates Plan of Care Start Date 03/15/21 Plan of Care End Date 04/05/21 Electronically Signed by: Ino Licea, PT 03/15/21 [id number] Please Sign and Return: I have reviewed this Plan of Care and certify that the skilled therapy services above are required to meet the patient?s needs. Physician Signature Date Printed Name and Credentials Clinical Instructor Signature Printed Name and Credentials
--- NOTE | 2021-03-15 16:21 | PT.OPPOC ---
Physical, Occupational & Speech Therapy At [facility] Current Diagnoses Other chronic pain (03/15/21) Pain in right hip (03/15/21) Visit Care Team Role Provider Type Margarita Bartholomew MD Primary Care Provider Non-Staff Specialty: Family Practice Address: [facility] [place], [address] Email: WENDY Guerrero Attending Provider Physician Referring Provider Specialty: Family Practice Address: [facility], [facility], [place], [address] Phone: Fax: Email: [email or web address] Plan Of Care PT-OP-T Assessment and Plan Start: 02/08/21 12:58 Freq: Status: Active Protocol: Document 03/15/21 15:15 DCW (Rec: 03/15/21 16:19 DCW [id number]) Physical Therapy Assessment Rehab Potential Rehabilitation Potential Excellent Evaluation Complexity Number of Personal Factors/Comorbidities 0 Number of Body Systems Impaired 1-2 Clinical Presentation at Evaluation Stable Impairments Impairments Soft Tissue Mobility,Strength, Tone Assessment Summary Assessment Pt presents today with a largely negative initial examination, may have some mild signs of involvement or right piriformis spasm. Does demonstrate some general weakness in right hip IR/ER, 4 /5 vs MMT testing of 5/5 in all other hip planes. Some mild-mod tone in right piriformis, may be experiencing infrequent piriformis spasm causing her posterior hip pain. Discussed difficulty performing differential diagnosis when she is not showing flair-ups, pt is understanding. Demonstrated and reviewed HEP involving piriformis stretching and strengthening to help try to prevent further spasm, or to improve mobility during flair-up. As pt currently is asymptomatic, unlikely to benefit from further skilled PT at this time, but pt is agreeable to return for a new evaluation if she does have another flair- up. Will keep chart open for ~ 2-3 weeks in case pt has any concerns or questions. Pt understands she will require a new referral in order to return after that. Physical Therapy Plan Frequency and Duration Frequency of Treatment Every Other Week Duration of Treatment Three weeks Plan of Care Start Date 03/15/21 Plan of Care End Date 04/05/21 Therapeutic Interventions Therapeutic Interventions Home Exercise Program,Patient/ Caregiver Education,Self-Care/ Home Management,Soft Tissue Mobilization,Therapeutic Exercises Next Visit Focus/Plan Next Note Type Treatment Note Next Visit Plan HEP, stretching, STM Plan of Care Dates Plan of Care Start Date 03/15/21 Plan of Care End Date 04/05/21 Electronically Signed by: Ino Licea, PT 03/15/21 [id number] Please Sign and Return: I have reviewed this Plan of Care and certify that the skilled therapy services above are required to meet the patient?s needs. Physician Signature Date Printed Name and Credentials Clinical Instructor Signature Printed Name and Credentials
--- NOTE | 2021-04-27 10:20 | PT.OPDS ---
Current Diagnoses Other chronic pain (03/15/21) Pain in right hip (03/15/21) Visit Care Team Role Provider Type Margarita Bartholomew MD Primary Care Provider Non-Staff Specialty: Family Practice Address: [facility] [place], [address] Email: WENDY Guerrero Attending Provider Physician Referring Provider Specialty: Family Practice Address: [address] [place] [address] [place], [address] Phone: Fax: Email: [email or web address] Visit Number 1 Discharge Summary PT-OP-B Current Condition Start: 02/08/21 12:58 Freq: Status: Active Protocol: Document 03/15/21 15:15 DCW (Rec: 03/15/21 16:19 DCW [id number]) Current Condition History of Current Condition Onset Date 10 year history Current Complaints Occasional right posterior hip pain History of Current Condition Pt is a 26 year old female presenting with a 10 year history of occasional right posterior hip pain. Reports she used to run on a treadmill a lot when in high school, and at one time felt like I got shot with an arrow in the hip, and couldn't get out of bed or move without pain for months. Ever since that time, pt get occasional flair-ups of pain in the same location. Her most recent flair-up was in January, which is when she got her referral for PT, however in the mean time she has done a course of steroids and feels quite a bit better. Pt was considering canceling, however decided it would be helpful to come to therapy and find out if there was anything she could do to either prevent it from recurring, or finding out what she should do if it does return. Prior Treatments and Tests Lumbar x-ray: IMPRESSION: No significant abnormality. per David Pereyra M.D. on R Hip x-ray: IMPRESSION: No significant abnormality. per David Pereyra M.D. on 02/06 Prior Functional Status Baseline Function- ADL's Independent Baseline Function- Mobility Independent PT-OP-C Subjective Start: 02/08/21 12:58 Freq: Status: Active Protocol: Document 03/15/21 15:15 DCW (Rec: 03/15/21 16:19 DCW [id number]) OP-PT Subjective Patient Comments Patient Comments There isn't really anything I seem to do that causes a flair-up, just walking around or sometimes turning in bed. Patient Reported Progress Improving Patient Questionnaires Lower Extremity Functional Scale LEFS Score 71/80 = 88.75% LEFS Impairment 1 to 19% Impaired (Score 63-79 ) OP-PT Pain Assessment Pain Assessment Grid Paper Pain Assessment Grid Completed Yes Location Right Posterior Hip Intensity 4 Scale Used Numeric (0 - 10) Variations/Patterns Can get as high as an 9/10 during flair-ups PT-OP-F Manual Assessment Start: 03/15/21 15:54 Freq: Status: Active Protocol: Document 03/15/21 15:15 DCW (Rec: 03/15/21 16:19 DCW [id number]) Manual Assessments Soft Tissue Assessment Soft Tissue Mobility Assessment Mild-moderate increased tone along right piriformis, tenderness to palpation 1/4: Complaint of pain. Joint Mobility Assessment Joint Mobility Assessment Passive motion of hip appears to be completely WNL PT-OP-K Range of Motion Start: 02/08/21 12:58 Freq: Status: Active Protocol: Document 03/15/21 15:15 DCW (Rec: 03/15/21 16:19 DCW [id number]) Lumbar Spine Range of Motion Lumbar Spine Active Comments Lumbar ROM entirely WNL Hip Goniometric Range of Motion Hip ROM Limitations Comments Right hip ROM WNL PT-OP-L Special Tests Start: 03/15/21 15:54 Freq: Status: Active Protocol: Document 03/15/21 15:15 DCW (Rec: 03/15/21 16:19 DCW [id number]) Special Tests Hip Special Tests Piriformis Test Results Mild note of some R tightness Lateral SI compression Test Results Negative Straight Leg Raise Test Results Negative Scour Test Test Results Negative Posterior Labral Test Test Results Negative Anterior Labral Test Test Results Negative PALAK Test Results Negative PT-OP-M Strength Start: 02/08/21 12:58 Freq: Status: Active Protocol: Document 03/15/21 15:15 DCW (Rec: 03/15/21 16:19 DCW [id number]) Hip Strength Hip Manual Muscle Testing Right Flexion (L2) 5 Normal Extension (S1) 5 Normal Abduction 5 Normal External Rotation 4 Good Internal Rotation 4 Good Left Flexion (L2) 5 Normal Extension (S1) 5 Normal Abduction 5 Normal External Rotation 5 Normal Internal Rotation 5 Normal PT-OP-T Assessment and Plan Start: 02/08/21 12:58 Freq: Status: Active Protocol: Document 04/27/21 10:18 DCW (Rec: 04/27/21 10:20 DCW [id number]) Physical Therapy Assessment Assessment Summary Assessment Pt was asymptomatic at the time of her eval, was unsure how to proceed. Instructed to return for follow-up in 2-3 weeks if symptoms returned. Pt has not called for follow-up in last 45 days, will be discharged from skilled PT at this time, and will require a new referral in order to return Physical Therapy Plan Discharge Physical Therapy Discharge Reasons No Longer Attending PT Next Visit Focus/Plan Next Note Type Discharge Summary
== END 2021-05-01 13:51 ==
LOC: PHYS 14:54
PROVIDERS: PCP Student in an Organized Health Care Education/Training Program; Referring Provider Nurse Practitioner Family; Visit Provider Nurse Practitioner Family
DX: M25.551 Pain in right hip (principal); G89.29 Other chronic pain
CPT/HCPCS: 97110; 97161

== ENCOUNTER → 2021-06-29 10:33 | Outpatient (ROUT) | payer OTHER, MEDICAID, SELFPAY ==
[2021-06-29 11:22] LABS: HCG Quantitative /Beta subunit 124.9 mIU/mL
[2021-06-29 11:36] LABS: Thyroid Stimulating Hormone 1.16 uIU/mL (0.47-4.68)
== END ==
PROVIDERS: PCP Student in an Organized Health Care Education/Training Program; Visit Provider Obstetrics & Gynecology Reproductive Endocrinology
DX: Z32.01 Encounter for pregnancy test, result positive (principal); Z13.29 Encounter for screening for other suspected endocrine disorder
CPT/HCPCS: 84443; 84702

== ENCOUNTER → 2021-07-03 14:29 | Outpatient (ROUT) | payer OTHER, MEDICAID, SELFPAY ==
[2021-07-03 14:59] LABS: HCG Quantitative /Beta subunit 562.3 mIU/mL
== END ==
PROVIDERS: Obstetrics & Gynecology Reproductive Endocrinology; PCP Student in an Organized Health Care Education/Training Program
DX: Z32.01 Encounter for pregnancy test, result positive (principal); Z13.29 Encounter for screening for other suspected endocrine disorder
CPT/HCPCS: 84702

== ENCOUNTER → 2021-08-14 12:48 | Outpatient (CLI) | payer OTHER, MEDICAID, SELFPAY ==
[2021-08-14 13:38] LABS: Add Manual Diff / Slide Review NO; Basophils Absolute Auto 100 /uL (0-100); Basophils Percent Auto 0.5 % (0-2); Eosinophils Absolute Auto 100 /uL (0-450); Eosinophils Percent Auto 0.5 % (2-4); Hematocrit 34.7 % (36-46); Hemoglobin 12.3 g/dL (12.0-16.0); Lymphocytes Absolute Auto 1700 /uL (1100-4500); Lymphocytes Percent Auto 15.9 % (25-40); Mean Corpuscular HGB Conc 35.5 % (30-36); Mean Corpuscular Hemoglobin 31.2 PG (26-34); Mean Corpuscular Volume 87.9 fL (80-100); Monocytes Absolute Auto 700 /uL (0-900); Monocytes Percent Auto 6.4 % (3-14); Neutrophils Absolute Auto 8400 /uL (1500-7000); Neutrophils Percent Auto 76.7 % (50-75); Platelet Count 253 X10^3/uL (150-400); Red Blood Cell Count 3.94 X10^6/uL (4.0-5.2); Red Cell Distribution Width 13.1 % (11.6-14.8); White Blood Cell Count 10.9 X10^3/uL (4.5-11.0)
[2021-08-14 13:43] LABS: Appearance Urine UA SL CLOUDY; Bilirubin Urine UA NEGATIVE (NEGATIVE); Color Urine UA YELLOW; Glucose Urine UA NEGATIVE (Negative); Ketones Urine UA NEGATIVE (NEGATIVE); Leukocyte Esterase Urine UA 1+ (NEGATIVE); Nitrite Urine UA NEGATIVE (Negative); Occult Blood Urine UA TRACE-LYSED (Negative); Protein Urine UA NEGATIVE (Negative); Specific Gravity Urine UA <=1.005 (1.000-1.035); Urobilinogen Urine UA 0.2 E.U./dL (0.2)
[2021-08-14 13:59] LABS: Bacteria Urine Few (2-10); RBC Urine None Seen (0-5/HPF); Squamous Epithelial Cell Urine 1-5 /HPF (0-5/HPF); WBC Urine 1-5/HPF (0-5/HPF)
[2021-08-14 16:18] LABS: Hepatitis B Surface Antigen NEGATIVE s/c (NEGATIVE)
[2021-08-14 16:33] LABS: HIV 1 & 2 Ab/Ag 4th Gen Combo NEGATIVE (NEGATIVE); Hep C Virus Ab w/Reflex Quant NEGATIVE s/c (NEGATIVE)
[2021-08-15 07:38] LABS: RPR Screen Non Reactive (Non Reactive)
[2021-08-15 08:24] LABS: Varicella IgG Antibody 671 index (Immune >165)
== END ==
PROVIDERS: PCP Student in an Organized Health Care Education/Training Program; Referring Provider Obstetrics & Gynecology; Visit Provider Obstetrics & Gynecology
DX: Z34.81 Encounter for supervision of other normal pregnancy, first trimester (principal)
CPT/HCPCS: 36415; 80055; 81003; 81015; 86787; 86803; 86850; 86900; 86901; 87086; 87389

== ENCOUNTER → 2021-08-21 12:24 | Outpatient (ROUT) | payer OTHER, MEDICAID, SELFPAY ==
[2021-08-21 23:09] LABS: Urine N gonorrhoeae NOT DETECTED
[2021-08-21 23:14] LABS: Urine Chlamydia NOT DETECTED
== END ==
PROVIDERS: PCP Student in an Organized Health Care Education/Training Program; Visit Provider Obstetrics & Gynecology
DX: Z34.81 Encounter for supervision of other normal pregnancy, first trimester (principal); Z3A.11 11 weeks gestation of pregnancy
CPT/HCPCS: 87491; 87591

== ENCOUNTER → 2021-09-21 11:43 | Outpatient (CLI) | payer OTHER, MEDICAID, SELFPAY | PROVIDERS: PCP Student in an Organized Health Care Education/Training Program; Visit Provider Obstetrics & Gynecology | DX: Z34.82 Encounter for supervision of other normal pregnancy, second trimester (principal); R10.2 Pelvic and perineal pain; R35.0 Frequency of micturition; Z3A.16 16 weeks gestation of pregnancy | CPT/HCPCS: 87086 ==

== ENCOUNTER → 2021-10-18 10:31 | Outpatient (CLI) | payer OTHER, MEDICAID, SELFPAY ==
--- NOTE | 2021-10-18 10:33 | DI.US.S_ITS ---
PROCEDURE: US OB >= 14 WEEKS FETUS INDICATIONS: ANATOMY OUTSIDE/PRIOR DATING DATA: Last menstrual period (LMP): 05/31/2021 LMP-based estimated date of delivery (YOBANY): 03/07/2022 First dating scan (date and location): 10/18/2021 Estimated date of delivery (YOBANY) from first dating scan: 03/03/2022. The calculations are made using the working YOBANY of 03/07/2022. TECHNIQUE: Real-time scanning was performed of the fetus, with image documentation and biometric measurements. Endovaginal scanning: Not performed. COMPARISON: None. FINDINGS: General: A single living intrauterine gestation is present. Presentation: Vertex Placenta: Placental position is posterior , without previa. Amniotic fluid index: 14.6 cm, normal range is 5-24 cm. Single deepest vertical pocket is 3.9 cm. heart rate: 153 beats per minute. Maternal cervical canal: 3.3 cm long. Normal lower limit is 2.5 cm. biometrics: Biparietal diameter: 4.8 cm Head circumference: 18.5 cm Abdominal circumference: 15.6 cm Femur length: 3.3 cm Clinically estimated gestational age: 20 weeks 0 days Composite gestational age from present scan: 20 weeks 4 days Estimated weight and percentile: 365 g, 79th percentile Anatomic survey: Neuro: Ventricles are non-dilated at less than 10 mm. Cisterna magna is normal at 3-11 mm. Cerebellum is normal in size and morphology. Nuchal skin fold: Normal at less than 6 mm between 14-21 weeks gestational age. Face: Nose and lips, facial profile are normal. Spine: No evidence for spina bifida. Heart: 4-chambered heart is present, with normal ventricular outflow tracts. Diaphragm: Diaphragm is intact. Stomach: Left-sided stomach is present. Kidneys: No hydronephrosis. Normal is less than 5 mm in 2nd trimester, less than 7 mm in 3rd trimester. Cord: 3-vessel cord has orthotopic insertion. Bladder: Normal in size. Extremities: All 4 extremities identified. IMPRESSION: Single living intrauterine gestation with average ultrasound age 20 weeks 4 days, consistent with clinical dates. Normal estimated weight and HERIBERTO. Normal anatomic survey. We strive to produce accurate, complete, and clear reports of imaging services. To assist us in improving patient care, this report was composed using standard report templates and voice recognition software. Therefore, it may contain abnormal punctuation, insertions and/or omissions. Occasional wrong-word or sound-alike substitutions may occur. Though we review the report and make efforts to correct it, we do recommend that the report be read carefully in proper context to recognize any text inaccuracies. Dictated by: Willard Olivares M.D. on 10/18/2021 at 21:19 Approved by: Willard Olivares M.D. on 10/18/2021 at 21:22
== END ==
PROVIDERS: PCP Student in an Organized Health Care Education/Training Program; Referring Provider Obstetrics & Gynecology; Visit Provider Obstetrics & Gynecology
DX: O26.899 Other specified pregnancy related conditions, unspecified trimester (principal); R10.9 Unspecified abdominal pain; R19.7 Diarrhea, unspecified; Z3A.20 20 weeks gestation of pregnancy
CPT/HCPCS: 76811; 87086

== ENCOUNTER → 2021-12-04 15:14 | Outpatient (CLI) | payer OTHER, MEDICAID, SELFPAY ==
[2021-12-06 04:44] LABS: Candida species Negative (Negative); Gardnerella vaginalis Negative (Negative); Trichomoas vaginalis Negative (Negative)
== END ==
PROVIDERS: Visit Provider Obstetrics & Gynecology
DX: N89.8 Other specified noninflammatory disorders of vagina (principal)
CPT/HCPCS: 87480; 87510; 87660

== ENCOUNTER → 2021-12-11 14:56 | Outpatient (CLI) | payer OTHER, MEDICAID, SELFPAY ==
[2021-12-11 17:30] LABS: Hematocrit 32.3 % (36-46); Hemoglobin 11.4 g/dL (12.0-16.0)
[2021-12-11 18:09] LABS: GTT (PREG) 1 Hour PP 50gm Dose 88 mg/dL (76-139)
[2021-12-11 18:54] LABS: TSH w/ Reflex to FT4 1.34 uIU/mL (0.47-4.68)
== END ==
PROVIDERS: Physician Assistant Medical; PCP Student in an Organized Health Care Education/Training Program; Referring Provider Obstetrics & Gynecology; Visit Provider Obstetrics & Gynecology
DX: O26.812 Pregnancy related exhaustion and fatigue, second trimester (principal); Z3A.26 26 weeks gestation of pregnancy
CPT/HCPCS: 36415; 82950; 84443; 85014; 85018

== ENCOUNTER 2021-12-26 17:14 | Outpatient (CLI) | payer OTHER, MEDICAID, SELFPAY ==
[2021-12-26 18:00] LABS: Appearance Urine UA CLEAR; Bilirubin Urine UA NEGATIVE (NEGATIVE); Color Urine UA YELLOW; Glucose Urine UA NEGATIVE (Negative); Ketones Urine UA NEGATIVE (NEGATIVE); Leukocyte Esterase Urine UA NEGATIVE (NEGATIVE); Nitrite Urine UA NEGATIVE (Negative); Occult Blood Urine UA TRACE-LYSED (Negative); Protein Urine UA NEGATIVE (Negative); Specific Gravity Urine UA 1.015 (1.000-1.035); Urobilinogen Urine UA 0.2 E.U./dL (0.2)
[2021-12-26 18:09] LABS: pH Urine UA 5.5 (4.5-8.0)
[2021-12-26 18:13] LABS: Bacteria Urine None Seen; Culture Indicated Urine Cult Not Indicated; RBC Urine None Seen (0-5/HPF); Squamous Epithelial Cell Urine 1-5 /HPF (0-5/HPF); WBC Urine None Seen (0-5/HPF)
--- NOTE | 2021-12-26 18:26 | PM.OBTRLD ---
Visit Information Visit Information Date of evaluation: 12/26/21 Primary OB Provider: Margo Garcia On-call OB Provider: Sari Alonzo Reason for Evaluation: Yes non-stress test non-stress test reason: other (Seeing spots) Vital Signs Vital Signs: Temperature 36.4? blood pressure 104/65 heart rate 91 [facility] Medical History (Updated 12/28/21 @ 08:24 by Sari Alonzo DO) Abdominal pain Abnormal Pap smear of cervix (~2014) Alcohol intoxication Anxiety and depression (~2015) Chicken pox (~1993) Chronic fatigue Dehydration Depression Elevated TSH Fibromyalgia (~2016) Headache Hypothyroidism (~2016) Infertility (~2020) Laceration of chin Migraine (~2015) Ovarian cyst (~2011) Painful menstrual periods (~2019) Right wrist sprain Suicidal ideation Viral syndrome Viral upper respiratory infection Viral URI Surgical History (Updated 09/16/21 @ 22:05 by Susu Lima) Anesthesia History of tonsillectomy S/P skin biopsy [place] teeth extracted Family History (Updated 09/16/21 @ 22:08 by Susu Lima) Grandmother Diabetes mellitus Lung cancer Grandfather Stroke Myocardial infarction Hypertension History of heart disease Grandfather Stroke Family/Other Malignant hyperthermia Multiple sclerosis Father Hypertension HPV (human papilloma virus) infection Cancer Mother Pre-diabetes Sister Mental health problem Social History marital status: number of children: 1 household members: spouse, children and other lives independently: Yes housing: house pets and animals: Yes (3 dogs, 1 cat, chickens) education level: college (some college, in nursing school currently) occupational status: employed and student 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) special yudith needs: No travel history: over 6 months ago seatbelt use: always helmet use: Yes water heater temp set < 120 deg: No (Will check and adjust) working smoke detector in home: Yes fire extinguisher in home: Yes carbon monox detector in home: Yes firearms in home: Yes firearms unloaded and locked: Yes do you feel safe at home: Yes Smoking Status: Never smoker second hand exposure: No alcohol intake: former substance use type: does not use during the past year weight has: remained stable well-balanced diet: about half the time daily servings fruits/ve-1 caffeine: Yes Type(s) of exercise: walking Objective Labs Labs: Laboratory Results - last 24 hr 12/26/21 17:41 Urine Color Yellow Urine Appearance Clear Urine pH 5.5 Ur Specific [place] 1.015 Urine Protein Negative Urine Glucose (UA) Negative Urine Ketones Negative Urine Occult Blood Trace-lysed Urine Nitrate Negative Urine Bilirubin Negative Urine Urobilinogen 0.2 Ur Leukocyte Esterase Negative Urine RBC None seen Urine WBC None seen Ur Squamous Epith Cells 1-5 /hpf Urine Bacteria None seen Ur Culture Indicated? Cult not indicated Evaluation Evaluation Baseline heart rate: 140 Variability: Moderate (11-25) monitor accelerations: Present Monitor Decelerations: Absent Category of Tracing: Reactive Diagnosis, Plan/Disposition Final Diagnosis (1) 29 weeks gestation of : Status: Acute Plan/Disposition Plan: 26-year-old at 29 weeks and 6 days gestation coming in due to an episode of seeing spots which resolved prior to arrival. Blood pressure is low suggesting possible orthostasis as a reason for lacks spots and lightheadedness. NST reactive. No concern for labor. Encouraged hydration. Follow-up as scheduled in clinic return to the center as needed. OB Disposition: home
== END 2021-12-26 19:10 | disposition home or self-care (01) ==
LOC: OB 12-29 16:43
PROVIDERS: PCP Student in an Organized Health Care Education/Training Program; Referring Provider Obstetrics & Gynecology; Visit Provider Obstetrics & Gynecology
DX: O26.893 Other specified pregnancy related conditions, third trimester (principal); H53.8 Other visual disturbances; R42 Dizziness and giddiness; Z3A.29 29 weeks gestation of pregnancy
CPT/HCPCS: 59025; 81001; G0378; G0379

== ENCOUNTER → 2022-01-03 16:19 | Outpatient (CLI) | payer OTHER, MEDICAID, SELFPAY ==
[2022-01-03 17:38] LABS: COVID19 -Nasal RAPID Negative (Negative)
== END ==
PROVIDERS: PCP Student in an Organized Health Care Education/Training Program; Visit Provider Obstetrics & Gynecology
DX: Z20.822 Contact with and (suspected) exposure to COVID-19 (principal); R05.9 Cough, unspecified
CPT/HCPCS: 87635

== ENCOUNTER → 2022-01-04 12:30 | Outpatient (CLI) | payer OTHER, MEDICAID, SELFPAY ==
[2022-01-04 14:25] LABS: Add Manual Diff / Slide Review NO; Basophils Absolute Auto 100 /uL (0-100); Basophils Percent Auto 0.5 % (0-2); Eosinophils Absolute Auto 100 /uL (0-450); Eosinophils Percent Auto 0.5 % (2-4); Hematocrit 33.8 % (36-46); Hemoglobin 11.9 g/dL (12.0-16.0); Lymphocytes Absolute Auto 2200 /uL (1100-4500); Lymphocytes Percent Auto 15.5 % (25-40); Mean Corpuscular HGB Conc 35.1 % (30-36); Mean Corpuscular Hemoglobin 31.7 PG (26-34); Mean Corpuscular Volume 90.2 fL (80-100); Monocytes Absolute Auto 1100 /uL (0-900); Monocytes Percent Auto 7.4 % (3-14); Neutrophils Absolute Auto 10900 /uL (1500-7000); Neutrophils Percent Auto 76.1 % (50-75); Platelet Count 243 X10^3/uL (150-400); Red Blood Cell Count 3.74 X10^6/uL (4.0-5.2); White Blood Cell Count 14.3 X10^3/uL (4.5-11.0)
[2022-01-04 15:01] LABS: Alanine Aminotransferase 15 IU/L (<35); Albumin 3.7 g/dL (3.5-5.0); Albumin Globulin Ratio 1.2 (1.0-2.8); Alkaline Phosphatase 116 U/L (38-126); Aspartate Aminotransferase 23 IU/L (14-36); BUN Creatinine Ratio 16.3 (6-22); Bilirubin Total 0.5 mg/dL (0.2-1.3); Blood Urea Nitrogen 7 mg/dL (7-17); Carbon Dioxide 23 mmol/L (22-32); Chloride 103 mmol/L (98-107); Estimated Glomerular Filt Rate > 60 mL/min (>60); Globulin 3.1 g/dL (1.7-4.1); Glucose 75 mg/dL (70-100); HEMOLYSIS 18 (0-50); Sodium 136 mmol/L (137-145); Total Protein 6.8 g/dL (6.3-8.2)
== END ==
PROVIDERS: PCP Student in an Organized Health Care Education/Training Program; Referring Provider Obstetrics & Gynecology; Visit Provider Obstetrics & Gynecology
DX: R06.00 Dyspnea, unspecified; R05.3 Chronic cough; Z3A.31 31 weeks gestation of pregnancy; O99.891 Other specified diseases and conditions complicating pregnancy
CPT/HCPCS: 36415; 80053; 85025

== ENCOUNTER → 2022-02-01 13:38 | Outpatient (CLI) | payer OTHER, MEDICAID, SELFPAY ==
[2022-02-02 15:55] LABS: Strep Grp B PCR NEG for Grp B Strep
[2022-02-03 09:30] LABS: Candida species Negative (Negative); Gardnerella vaginalis Negative (Negative); Trichomoas vaginalis Negative (Negative)
== END ==
PROVIDERS: Obstetrics & Gynecology; PCP Student in an Organized Health Care Education/Training Program; Visit Provider Physician Assistant Medical
DX: N89.8 Other specified noninflammatory disorders of vagina (principal); Z34.83 Encounter for supervision of other normal pregnancy, third trimester; Z3A.35 35 weeks gestation of pregnancy
CPT/HCPCS: 87480; 87510; 87653; 87660

== ENCOUNTER 2022-02-04 14:56 | Outpatient (CLI) | payer OTHER, MEDICAID, SELFPAY ==
--- NOTE | 2022-02-25 22:08 | PM.OBTRLD ---
Visit Information Visit Information Date of evaluation: 02/04/22 Primary OB Provider: Margo Garcia On-call OB Provider: Madiha Ordaz Reason for Evaluation: Yes non-stress test non-stress test reason: decreased movement [facility] Medical History (Updated 02/16/22 @ 14:46 by Geo Schmid MD) Abdominal pain Abnormal Pap smear of cervix (~2014) Alcohol intoxication Anxiety and depression (~2015) Chicken pox (~1993) Chronic fatigue Dehydration Depression Elevated TSH Fibromyalgia (~2016) Headache Hypothyroidism (~2016) Infertility (~2020) Laceration of chin Migraine (~2015) Ovarian cyst (~2011) Painful menstrual periods (~2019) Right wrist sprain Suicidal ideation Viral syndrome Viral upper respiratory infection Viral URI Surgical History (Updated 09/16/21 @ 22:05 by Susu Lima) Anesthesia History of tonsillectomy S/P skin biopsy [place] teeth extracted Family History (Updated 09/16/21 @ 22:08 by Susu Lima) Grandmother Diabetes mellitus Lung cancer Grandfather Stroke Myocardial infarction Hypertension History of heart disease Grandfather Stroke Family/Other Malignant hyperthermia Multiple sclerosis Father Hypertension HPV (human papilloma virus) infection Cancer Mother Pre-diabetes Sister Mental health problem Social History marital status: number of children: 1 household members: spouse, children and other lives independently: Yes housing: house pets and animals: Yes (3 dogs, 1 cat, chickens) education level: college (some college, in nursing school currently) occupational status: employed and student 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[employer], [place]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) special yudith needs: No travel history: over 6 months ago seatbelt use: always helmet use: Yes water heater temp set < 120 deg: No (Will check and adjust) working smoke detector in home: Yes fire extinguisher in home: Yes carbon monox detector in home: Yes firearms in home: Yes firearms unloaded and locked: Yes do you feel safe at home: Yes Smoking Status: Never smoker second hand exposure: No alcohol intake: former substance use type: does not use during the past year weight has: remained stable well-balanced diet: about half the time daily servings fruits/ve-1 caffeine: Yes Type(s) of exercise: walking Evaluation Evaluation Baseline heart rate: 140 Variability: Moderate (11-25) monitor accelerations: Present Monitor Decelerations: Absent Contraction Frequency (minutes): 0 Category of Tracing: Reactive Diagnosis, Plan/Disposition Plan/Disposition Plan: Assessment: 25-year-old 2 para 1 at 30-,6/7 weeks gestation decreased movement Reactive nonstress test Plan: Discharge to home kick counts discussed Follow-up as scheduled OB Disposition: home
== END 2022-02-04 15:50 | disposition home or self-care (01) ==
LOC: OB 02-08 16:06
PROVIDERS: PCP Student in an Organized Health Care Education/Training Program; Referring Provider Obstetrics & Gynecology; Visit Provider Obstetrics & Gynecology
DX: Z34.83 Encounter for supervision of other normal pregnancy, third trimester (principal); Z3A.35 35 weeks gestation of pregnancy
CPT/HCPCS: 59025; 84112; G0378; G0379

== ENCOUNTER → 2022-02-17 10:14 | Outpatient (CLI) | payer OTHER, MEDICAID, SELFPAY ==
[2022-02-17 11:52] LABS: Alanine Aminotransferase 21 IU/L (<35); Albumin 3.5 g/dL (3.5-5.0); Albumin Globulin Ratio 1.3 (1.0-2.8); Alkaline Phosphatase 201 U/L (38-126); Aspartate Aminotransferase 21 IU/L (14-36); Bilirubin Total 0.7 mg/dL (0.2-1.3); Bilirubin Unconjugated 0.8 mg/dL (0.0-1.1); Globulin 2.7 g/dL (1.7-4.1); HEMOLYSIS < 15 (0-50); Total Protein 6.2 g/dL (6.3-8.2)
== END ==
PROVIDERS: PCP Student in an Organized Health Care Education/Training Program; Referring Provider Obstetrics & Gynecology; Visit Provider Obstetrics & Gynecology
DX: R10.11 Right upper quadrant pain (principal)
CPT/HCPCS: 36415; 80076

== ENCOUNTER 2022-02-21 12:47 | Inpatient (IN) | payer OTHER, MEDICAID, SELFPAY ==
[2022-02-21] MEDS: LACTATED RINGERS 1,000 ML 100 ML IV ×2 (15:30→16:44)
--- NOTE | 2022-02-21 15:38 | PM.OBHP.1 ---
OB HPI Date/Time Date of admission: 02/21/22 Date Patient Seen: 02/21/22 Time Patient Seen: 15:38 History of Present Condition Chief complaint: Contractions : 3 Para: 1 Estimated Date of Delivery: 03/07/22 Estimated Gestational Age (weeks): 38+0 Narrative: Erica Ferrell is a 27 year old presenting earlier today with RUC and demonstrable cervical change who is admitted for labor and delivery. Patient's prior delivery was precipitous and highly traumatic for the patient. Her course has been largely uneventful with appropriate milestones and solid dating. GBS is negative. History of Present care: good care Dating criteria: LMP confirmed by 1st trimester US Ultrasounds: normal 1st trimester US and normal mid trimester US Obstetrical complications: none Medical complications: none Preadmission Labs Blood type: B (+) positive -: Antibody screen: negative, GBS status: negative, HBsAG: negative, HIV: negative and RPR/VDLR: negative -: Chlamydia screen: not detected and Gonorrhea screen: not detected -: Rubella: immune and Varicella: immune HCT: 33.8 HCAB: negative PAP: Normal Quad screen: Normal 1 hr GTT: 88 Prior (ies) History: x 1, precipitous delivery Evaluation Evaluation Baseline heart rate: 140 Variability: Moderate (11-25) monitor accelerations: Present Monitor Decelerations: Absent Contraction Frequency (minutes): 5 Uterine Contraction Intensity: Moderate Category of Tracing: Reactive Status: Category l Dilation (cm): 4 Effacement (%): 80 Dilation: 3-4 cm Effacement: >/=80% station: -1 Position of cervix: anterior Consistency: medium Leon score: 10 [facility] Medical History (Updated 02/16/22 @ 14:46 by Geo Schmid MD) Abdominal pain Abnormal Pap smear of cervix (~2014) Alcohol intoxication Anxiety and depression (~2015) Chicken pox (~1993) Chronic fatigue Dehydration Depression Elevated TSH Fibromyalgia (~2016) Headache Hypothyroidism (~2016) Infertility (~2020) Laceration of chin Migraine (~2015) Ovarian cyst (~2011) Painful menstrual periods (~2019) Right wrist sprain Suicidal ideation Viral syndrome Viral upper respiratory infection Viral URI Surgical History (Updated 09/16/21 @ 22:05 by Susu Lima) Anesthesia History of tonsillectomy S/P skin biopsy [place] teeth extracted Family History (Updated 09/16/21 @ 22:08 by Susu Lima) Grandmother Diabetes mellitus Lung cancer Grandfather Stroke Myocardial infarction Hypertension History of heart disease Grandfather Stroke Family/Other Malignant hyperthermia Multiple sclerosis Father Hypertension HPV (human papilloma virus) infection Cancer Mother Pre-diabetes Sister Mental health problem Social History marital status: number of children: 1 household members: spouse, children and other lives independently: Yes housing: house pets and animals: Yes (3 dogs, 1 cat, chickens) education level: college (some college, in nursing school currently) occupational status: employed and 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) special yudith needs: No travel history: over 6 months ago seatbelt use: always helmet use: Yes water heater temp set < 120 deg: No (Will check and adjust) working smoke detector in home: Yes fire extinguisher in home: Yes carbon monox detector in home: Yes firearms in home: Yes firearms unloaded and locked: Yes do you feel safe at home: Yes Smoking Status: Never smoker second hand exposure: No alcohol intake: former substance use type: does not use during the past year weight has: remained stable well-balanced diet: about half the time daily servings fruits/ve-1 caffeine: Yes Type(s) of exercise: walking Meds Home Medications and Allergies Home Medications Medication Instructions Recorded Confirmed Type prenat.vits,shiva,ogl-vokh-xweka 1 tab PO DAILY 08/02/21 02/21/22 History Allergies Allergy/AdvReac Type Severity Reaction Status Date / Time Sulfa (Sulfonamide Allergy Severe SWOLLEN Verified 02/15/22 11:46 Antibiotics) THROAT [SULFA (SULFONAMIDE ANTIBIOTICS)] OB Exam HENMT Head: normal to inspection, normocephalic and atraumatic Eyes General: appearance normal, both eyes and all related structures Resp Effort & Inspection: normal respiratory effort and able to speak in complete sentences Auscultation: clear to auscultation bilaterally Cardio Rate: regular rate Rhythm: regular rhythm Heart Sounds: S1 normal, S2 normal and no murmurs Extremities Lower extremity: Yes normal to inspection GI Inspection: normal to inspection Palpation: Yes soft and Yes no hepatosplenomegaly Uterus Location (Fundal Height): 38 Presentation: vertex Estimated Weight (lbs): 8 Amniotic Fluid: clear Other: AROM performed 1700, SHAUNA in place Objective Labs Result Diagrams: 02/21/22 15:00 Assessment and Plan Assessment and Plan Assessment and Plan narrative: ASSESSMENT 1. Intrauterine , 38+0 wks EGA in early labor 2. History of precipitous labor and delivery 3. GBS negative status PLAN 1. Admit for delivery 2. See orders
[2022-02-21 15:41] VITALS: BP 119/74
[2022-02-21 15:58] LABS: Add Manual Diff / Slide Review NO; Basophils Absolute Auto 100 /uL (0-100); Basophils Percent Auto 0.4 % (0-2); Eosinophils Absolute Auto 100 /uL (0-450); Eosinophils Percent Auto 0.4 % (2-4); Hematocrit 36.9 % (36-46); Hemoglobin 12.6 g/dL (12.0-16.0); Lymphocytes Absolute Auto 2300 /uL (1100-4500); Lymphocytes Percent Auto 15.2 % (25-40); Mean Corpuscular HGB Conc 34.2 % (30-36); Mean Corpuscular Volume 90.7 fL (80-100); Monocytes Absolute Auto 1200 /uL (0-900); Monocytes Percent Auto 7.7 % (3-14); Neutrophils Absolute Auto 11800 /uL (1500-7000); Neutrophils Percent Auto 76.3 % (50-75); Platelet Count 251 X10^3/uL (150-400); Red Blood Cell Count 4.07 X10^6/uL (4.0-5.2); Red Cell Distribution Width 13.4 % (11.6-14.8); White Blood Cell Count 15.4 X10^3/uL (4.5-11.0)
[2022-02-21 16:11] LABS: COVID19 -Nasal RAPID Negative (Negative)
[2022-02-21] MEDS: FENT 2MCG/ML BUPIV 0.125% EPI 200 MCG/100 ML PLAST..BAG 6 MCG EPIDURAL (16:45)
--- NOTE | 2022-02-21 20:20 | PM.OBPRVD ---
Labor & Delivery Delivery date: 02/21/22 Intrapartal Events: None Cervical ripening method: none Induction method: none Delivery augmentation: rupture of membranes Delivery monitor: external FHT and external uterine Route of delivery: Episiotomy description: None L&D Laceration Description: Perineal - 1st Degree Delivery repair: chromic Estimated blood loss (mL): 100 Anesthesia Type: Epidural Complications: none Baby 1: gender: Male Presentation: vertex Position: Right Occiput Anterior Placenta delivery description: Spontaneous Cord Vessel Description: 3 Vessels score (1 min): 9 score (5 min): 9 weight: 6 lb 13.984 oz Narrative: Patient presented in early labor at 38wk3d. She received an epidural for anesthesia. She had artificial ruptured membranes at 4 cm for augmentation of labor. She progressed over the next few hours to completely dilated. With 1 push she brought the head to near the introitus. She was prepped and draped for delivery. She had a spontaneous vaginal delivery with pushing over the next 2 contractions. Head was delivered in a controlled fashion. Anterior and posterior shoulders were delivered with ease with the patient pushing, followed by the remainder of the body. No nuchal cord was present. A vigorous baby boy delivered and placed on the maternal abdomen. After 1 minute cord was clamped and cut. The placenta delivered spontaneously few minutes later. She had minimal bleeding after placental delivery. She had a small first-degree perineal laceration which was repaired in the usual fashion with 3-0 chromic. Epidural anesthesia was adequate for the repair. Plan for aftercare: Routine care
[2022-02-22] MEDS: IBUPROFEN 600 MG TABLET PO ×3 (02:58→14:28)
[2022-02-22] MEDS: ACETAMINOPHEN 325 MG TABLET 650 MG PO ×3 (02:58→14:27)
[2022-02-22] MEDS: OXYCODONE IR 5 MG TABLET PO ×5 (05:49→17:35)
[2022-02-22] MEDS: PRENATAL VIT,CALC/IRON/FOLIC 1 TABLET 1 TAB PO (08:38)
--- NOTE | 2022-02-22 13:55 | DI.CT.S_ITS ---
PROCEDURE: CT ABDOMEN PELVIS WO CON INDICATIONS: Unrelenting abdominal, pelvic, and back pain post- TECHNIQUE: Axial sections were acquired from the lung bases to the pubic symphysis. Coronal and sagittal reformats were performed. For radiation dose reduction, the following was used: automated exposure control, adjustment of mA and/or kV according to patient size. COMPARISON: [facility], CT, CT ABDOMEN PELVIS W CON, 05/03/2020, 16:14. FINDINGS: Image quality: Excellent. Lung bases: Unremarkable. Heart: No significant findings. URINARY: Right Kidney: Tiny punctate density in the right kidney may represent a 1 mm nonobstructing stone. This is seen on image 29/series 2. Otherwise, no hydronephrosis. No perinephric stranding. Right Ureter: Right ureter is normal in course and caliber. No ureteral stone. Left Kidney: No stones or hydronephrosis. Left Ureter: No hydroureter. Bladder: Normal wall thickness. No stones. ABDOMEN: Liver: Unremarkable. Gallbladder: Unremarkable. Biliary ducts: Unremarkable. Pancreas: Unremarkable. Spleen: Unremarkable. Adrenal Glands: Unremarkable. Stomach and Bowel: Stomach, small bowel loops, and colon are unremarkable. Peritoneum: No abnormal intraperitoneal fluid. No free air. Ventral Wall: There is a fat-containing umbilical hernia without acute inflammation. Abdominal Nodes: No enlarged retroperitoneal or mesenteric lymph nodes. Vessels: Aorta and inferior vena cava are normal in size. PELVIS: Pelvic Organs: The uterus is enlarged with soft tissue prominence of the vaginal vault compatible with changes. Pelvic Nodes: Unremarkable. Miscellaneous: No inguinal hernias are seen. Bones: Unremarkable. IMPRESSION: 1. CT abdomen and pelvis without acute abnormalities to explain patient's symptoms. 2. changes/appearance of the uterus and vaginal vault. 3. Possible tiny punctate 1 mm nonobstructing right renal stone. Dictated by: Zbigniew Cooney M.D. on 02/22/2022 at 14:30 Approved by: Zbigniew Cooney M.D. on 02/22/2022 at 14:41
--- NOTE | 2022-02-22 16:29 | P.PNOB_ITS ---
Subjective - OB Subjective Patient comments: other [place] baby status: doing well Date Patient Seen: 02/22/22 Time Patient Seen: 16:00 Objective Labs Result Diagrams: 02/21/22 15:00 Labs: Laboratory Results - last 24 hr 02/21/22 15:00 Blood Type B Positive Antibody Screen Negative Assessment & Plan Time Spent With Patient Time: Total time spent is greater than 50% in coordination of care (as documented) at patient's floor/unit and/or counseling patient:
--- NOTE | 2022-02-22 18:03 | P.DS_ITS ---
Discharge Providers Provider Date of admission: 02/21/22 12:47 Discharge Date: 01/23/22 Primary care physician: Margarita Bartholomew MD Consults: 02/22/22 20:23 Consult to [employer] Consultant Routine Comment: Discharge provider: Margo Garcia MD Summary Hospital Course Date Patient Seen: 02/22/22 Time Patient Seen: 17:30 Diagnoses: 38 week , delivered Spontaneous labor Hospital Course: 27 yo female?presented in early labor at EGA 38wk3d.? She had a history of a prior precipitous labor and delivery. She received an epidural for anesthesia. ?She had artificial? ruptured membranes at 4 cm for augmentation of labor.? She progressed over the next few hours to completely dilated. ? With 1 push she brought the head to near the introitus.? She had a spontaneous vaginal delivery with pushing over the next 2 contractions.? A vigorous baby boy delivered weighing 6 lb 13.9 oz with Apgars of 9 and 9. and? The? placenta delivered spontaneously few minutes later.? She had minimal bleeding after placental delivery and continued with normal lochia . She had a small first-degree perineal laceration which was repaired. A few hours she develops severe cramping and some discomfort her epidural site, both improved after oxycodone. However cramping returned And today on day 1 she reported severe cramping and radiating to upper abdomen. CT scan was ordered to rule out any pathology. Visiting with her this evening I reviewed that the CT scan was normal. There was an incidental finding of a 1 mm nonobstructing renal stone. By description her cramping appears to be severe uterine cramping that can occur with multiparity, appears consistent as it was much worse with such that she was now doing some bottle feeding. Patient reassured that the discomfort should gradually improve, in the interim can treat with ibuprofen and oxycodone. She reports normal lochia. Denies other problems. Urinating without a problem. When , it is going well. Within the hour after seeing her, with cramping somewhat decreased in reassured with the normal CT scan findings, she decided she did desire discharge to home on day 1. Baby was doing well and was ready for discharge. She was discharged to home with routine follow-up in 6 weeks for routine visit, earlier prn. \ Peripartum Data Infant Delivery Method: Natural Vaginal Laceration Description: Perineal - 1st Degree Episiotomy description: None Procedures: Epidural anesthesia placed by anesthesiologist Spontaneous vaginal delivery, repair of first-degree perineal laceration complications: none [place] 1: Gender: Male Disposition of : home Discharge Diagnosis (1) examination following vaginal delivery: Status: Acute Time Spent with Patient Time attestation: Total time spent providing and/or coordinating discharge services: Objective Imaging CT scan - abdomen: Radiologist's impression: 02/22/22 PROCEDURE:? CT ABDOMEN PELVIS WO CON ? INDICATIONS:? Unrelenting abdominal, pelvic, and back pain post- ? TECHNIQUE:? Axial sections were acquired from the lung bases to the pubic symphysis.? Judge l and sagittal reformats were performed.? For radiation dose reduction, the following was used: ?automated exposure control, adjustment of mA and/or kV according to patient size.? ? COMPARISON:? [facility], CT, CT ABDOMEN PELVIS W CON, 05/03/2020, 16:14. ? FINDINGS:? Image quality:? Excellent.? ? Lung bases:? Unremarkable.? ? Heart:? No significant findings. ? URINARY: Right Kidney:? Tiny punctate density in the right kidney may represent a 1 mm nonobstructing stone.? This is seen on image 29/series 2. Otherwise, no hydronephrosis.? No perinephric stranding.? Right Ureter:? Right ureter is normal in course and caliber.? No ureteral stone.? ? Left Kidney: ? No stones or hydronephrosis. Left Ureter:? No hydroureter.? ? Bladder:? Normal wall thickness. No stones. ? ? ? ABDOMEN: Liver:? Unremarkable.? ? Gallbladder:? Unremarkable.? ? Biliary ducts:? Unremarkable.? ? Pancreas:? Unremarkable.? ? Spleen:? Unremarkable.? ? Adrenal Glands:? Unremarkable.? ? ? Stomach and Bowel:? Stomach, small bowel loops, and colon are unremarkable.? Peritoneum:? No abnormal intraperitoneal fluid.? No free air.? ? Ventral Wall: ? There is a fat-containing umbilical hernia without acute inflammation. Abdominal Nodes:? No enlarged retroperitoneal or mesenteric lymph nodes.? Vessels:? Aorta and inferior vena cava are normal in size.? ? PELVIS: Pelvic Organs:? The uterus is enlarged with soft tissue prominence of the vaginal vault compatible with changes.? ? Pelvic Nodes: Unremarkable. Miscellaneous: No inguinal hernias are seen. ? ? ? Bones:? Unremarkable. ? IMPRESSION:? ? 1. CT abdomen and pelvis without acute abnormalities to explain patient's symptoms. ? 2. changes/appearance of the uterus and vaginal vault. ? 3. Possible tiny punctate 1 mm nonobstructing right renal stone.? ? Labs Result Diagrams: 02/21/22 15:00 Exam Vital Signs (past 8 hours): Temp 99.3 F BP 106/73 Pulse 79 RR 16 Narrative Exam Narrative: General: Well-appearing female Abdomen: Soft, nontender, nondistended. Fundus U-1, firm, nontender Extremities: Trace pedal edema Discharge Plan Discharge Plan Patient Disposition: Home Provider Discharge Comment: Congratulations on the on your son! You are day 1 after a vaginal delivery. You may use Tylenol for pain to supplement your prescription strength ibuprofen that you have at home. I recommend picking up a stool softener such as Colace and taking 1 daily until you are no longer using the oxycodone. Discharge orders & Medications Prescriptions: New oxycodone 5 mg Tablet 5 mg PO Q4H PRN (Reason: Pain, Moderate (4-6)) Qty: 10 0RF Continued prenat.vits,shiva,aju-dtxn-renow Tablet 1 tab PO DAILY Follow up/Referrals: Margarita Bartholomew MD [Primary Care Provider] - () Geo Schmid MD [Physician] - (Appointment with on Thrus,March; check in time 11:15 am.) Discharge Health Status Multidrug resistant organism: No MDRO Diet/Activity/Treatments Diet: Regular Activity: Nothing in the vagina for 6 weeks, no tampons and no intercourse. Visit Report/Discharge Packet Instructions: DI for Labor and Delivery, Vaginal Discharge Data Primary Care Provider: Margarita Bartholomew
[2022-02-22 18:17] VITALS: BP 84/52; PULSE 57; RESP 16; TEMP 37.5
== END 2022-02-22 19:14 | disposition home or self-care (01) | DRG 560 ==
PROVIDERS: Admitting Provider Obstetrics & Gynecology; PCP Student in an Organized Health Care Education/Training Program; Referring Provider Obstetrics & Gynecology; Visit Provider Obstetrics & Gynecology
DX: O70.0 First degree perineal laceration during delivery (principal); Z3A.38 38 weeks gestation of pregnancy; Z37.0 Single live birth; Z20.822 Contact with and (suspected) exposure to COVID-19
CPT/HCPCS: 36415; 59050; 59409; 74176; 85025; 86850; 86900; 86901; 87635; C9803; G0379

== ENCOUNTER → 2022-10-02 17:25 | Outpatient (CLI) | payer OTHER, MEDICAID, SELFPAY ==
[2022-10-02 19:00] LABS: Alanine Aminotransferase 13 IU/L (<35); Albumin 4.6 g/dL (3.5-5.0); Albumin Globulin Ratio 1.7 (1.0-2.8); Alkaline Phosphatase 64 U/L (38-126); Aspartate Aminotransferase 21 IU/L (14-36); BUN Creatinine Ratio 19.2 (6-22); Bilirubin Total 1.2 mg/dL (0.2-1.3); Blood Urea Nitrogen 10 mg/dL (7-17); Calcium 9.6 mg/dL (8.4-10.2); Carbon Dioxide 26 mmol/L (22-32); Chloride 102 mmol/L (98-107); Estimated Glomerular Filt Rate > 60 mL/min (>60); Globulin 2.7 g/dL (1.7-4.1); Glucose 84 mg/dL (70-100); HEMOLYSIS < 15 (0-50); Potassium 3.9 mmol/L (3.4-5.1); Sodium 137 mmol/L (137-145); Total Protein 7.3 g/dL (6.3-8.2)
[2022-10-02 19:02] LABS: NT-proBNP (BNP-Adult 18+) < 20 pg/mL (<125)
== END ==
PROVIDERS: PCP Student in an Organized Health Care Education/Training Program; Referring Provider Internal Medicine Cardiovascular Disease; Visit Provider Internal Medicine Cardiovascular Disease
DX: R60.0 Localized edema (principal)
CPT/HCPCS: 36415; 80053; 83880

== ENCOUNTER → 2023-05-23 12:52 | Outpatient (CLI) | payer OTHER, MEDICAID, SELFPAY ==
[2023-05-23 14:02] LABS: Add Manual Diff / Slide Review NO; Basophils Absolute Auto 100 /uL (0-100); Basophils Percent Auto 0.6 % (0-2); Eosinophils Absolute Auto 100 /uL (0-450); Eosinophils Percent Auto 0.6 % (2-4); Hematocrit 39.3 % (36-46); Hemoglobin 13.7 g/dL (12.0-16.0); Lymphocytes Absolute Auto 2000 /uL (1100-4500); Lymphocytes Percent Auto 20.4 % (25-40); Mean Corpuscular HGB Conc 34.7 % (30-36); Mean Corpuscular Hemoglobin 30.4 PG (26-34); Mean Corpuscular Volume 87.7 fL (80-100); Monocytes Absolute Auto 800 /uL (0-900); Monocytes Percent Auto 7.9 % (3-14); Neutrophils Absolute Auto 7000 /uL (1500-7000); Neutrophils Percent Auto 70.5 % (50-75); Platelet Count 267 X10^3/uL (150-400); Red Blood Cell Count 4.48 X10^6/uL (4.0-5.2); Red Cell Distribution Width 12.9 % (11.6-14.8); White Blood Cell Count 9.9 X10^3/uL (4.5-11.0)
[2023-05-23 22:39] LABS: Hepatitis B Surface Antigen NEGATIVE s/c (NEGATIVE); Rubella Antibody IgG 21.7 IU/mL (>15)
[2023-05-25 08:15] LABS: RPR Screen Non Reactive (Non Reactive)
== END ==
PROVIDERS: PCP Student in an Organized Health Care Education/Training Program; Referring Provider Specialist; Visit Provider Specialist
DX: Z34.80 Encounter for supervision of other normal pregnancy, unspecified trimester (principal)
CPT/HCPCS: 36415; 80055

== ENCOUNTER 2023-05-24 14:35 | Emergency (ER) | payer OTHER, MEDICAID, SELFPAY ==
[2023-05-24 14:37] VITALS: BP 117/67; PULSE 135; RESP 20; TEMP 36.7; O2SAT 97; BMI 21.2
--- NOTE | 2023-05-24 14:48 | DI.US.S_ITS ---
PROCEDURE: US OB <= 14 WEEKS FETUS INDICATIONS: hyperemesis/ 6.5 weeks/ cramping OUTSIDE/PRIOR DATING DATA: Last menstrual period (LMP): 04/21/23 LMP-based estimated date of delivery (YOBANY): 01/12/24. First dating scan (date and location): This study. Estimated date of delivery (YOBANY) from first dating scan: 01/14/24. The calculations are made using the current YOBANY above. TECHNIQUE: Real-time scanning was performed of the fetus and maternal pelvic organs, with image documentation. Endovaginal scanning was also performed to better visualize the fetus and maternal ovaries. COMPARISON: None. FINDINGS: Embryo: There is a single living intrauterine gestation, yolk sac visualized, cardiac activity at 132 beats per minute was seen. Note is made of a small 9 x 15 mm perigestational bleed superior to the gestational sac. Heart rate: 132 Maternal organs: Ovaries normal considering gestational status. IMPRESSION: Single living intrauterine gestation with a very small adjacent perigestational hemorrhage measuring only 9 x 15 mm. Follow-up anatomic survey ultrasound is recommended at approximately Dictated by: Mele Fernandez M.D. on 05/24/2023 at 16:51 Approved by: Mele Fernandez M.D. on 05/24/2023 at 16:54
[2023-05-24] MEDS: ONDANSETRON 4 MG/2 ML INJ IV (15:02)
[2023-05-24] MEDS: SODIUM CHLORIDE 0.9% 1,000 ML 1000 ML IV (15:02)
[2023-05-24 15:19] LABS: Add Manual Diff / Slide Review NO; Basophils Absolute Auto 0 /uL (0-100); Basophils Percent Auto 0.1 % (0-2); Eosinophils Absolute Auto 100 /uL (0-450); Eosinophils Percent Auto 0.5 % (2-4); Hematocrit 44.7 % (36-46); Hemoglobin 15.4 g/dL (12.0-16.0); Lymphocytes Absolute Auto 400 /uL (1100-4500); Lymphocytes Percent Auto 2.4 % (25-40); Mean Corpuscular HGB Conc 34.3 % (30-36); Mean Corpuscular Hemoglobin 30.3 PG (26-34); Mean Corpuscular Volume 88.4 fL (80-100); Monocytes Absolute Auto 400 /uL (0-900); Monocytes Percent Auto 2.4 % (3-14); Neutrophils Absolute Auto 16000 /uL (1500-7000); Neutrophils Percent Auto 94.6 % (50-75); Platelet Count 293 X10^3/uL (150-400); Red Blood Cell Count 5.06 X10^6/uL (4.0-5.2); Red Cell Distribution Width 13.2 % (11.6-14.8); White Blood Cell Count 16.9 X10^3/uL (4.5-11.0)
[2023-05-24 15:28] LABS: Alanine Aminotransferase 16 IU/L (<35); Albumin Globulin Ratio 1.4 (1.0-2.8); Alkaline Phosphatase 74 U/L (38-126); Aspartate Aminotransferase 25 IU/L (14-36); Bilirubin Total 1.9 mg/dL (0.2-1.3); Blood Urea Nitrogen 11 mg/dL (7-17); Carbon Dioxide 20 mmol/L (22-32); Chloride 107 mmol/L (98-107); Estimated Glomerular Filt Rate > 60 mL/min (>60); Globulin 3.7 g/dL (1.7-4.1); Glucose 116 mg/dL (70-100); HEMOLYSIS < 15 (0-50); Potassium 3.9 mmol/L (3.4-5.1); Sodium 138 mmol/L (137-145); Total Protein 8.7 g/dL (6.3-8.2)
--- NOTE | 2023-05-24 15:42 | PC.NURSE ---
Pt states her children were sick w/ n/v. Pt states she has been vomiting everytime she stands up.
[2023-05-24 15:44] LABS: Bilirubin Urine UA NEGATIVE (NEGATIVE); Color Urine UA YELLOW; Glucose Urine UA NEGATIVE (Negative); Ketones Urine UA 1+ (NEGATIVE); Leukocyte Esterase Urine UA NEGATIVE (NEGATIVE); Nitrite Urine UA NEGATIVE (Negative); Occult Blood Urine UA NEGATIVE (Negative); Protein Urine UA 1+ (Negative); Specific Gravity Urine UA >=1.030 (1.000-1.035); Urobilinogen Urine UA 0.2 E.U./dL (0.2)
[2023-05-24 15:53] LABS: Influenza A - CEPHEID Flu A NEGATIVE (NEGATIVE); Influenza B - CEPHEID Flu B NEGATIVE (NEGATIVE); Respiratory Syncytial Virus Negative (Negative)
[2023-05-24 16:00] LABS: Appearance Urine UA Slightly Cloudy; Urine Volume 10mL (spun); pH Urine UA 5.5 (4.5-8.0)
[2023-05-24 16:01] LABS: Bacteria Urine Occasional (0-1); Culture Indicated Urine Cult Not Indicated; Mucus Urine 1+ (Negative); RBC Urine 0-1/HPF (0-5/HPF); Squamous Epithelial Cell Urine 0-1 /HPF (0-5/HPF); WBC Urine None Seen (0-5/HPF)
[2023-05-24 16:03] LABS: COVID-19 CEPHEID 4-PLEX PCR Negative (Negative)
[2023-05-24] MEDS: METOCLOPRAMIDE 10 MG/2 ML INJ IV (17:15)
[2023-05-24 17:31] VITALS: PULSE 99; O2SAT 99
--- NOTE | 2023-05-24 18:05 | ED_ITS ---
HPI - Nausea/Vomiting/Diarrhea General Chief complaint: Nausea/Vomiting/Diarrhea Stated complaint: stomach flu/6.5 wks Time Seen by Provider: 05/24/23 17:50 Source: patient Mode of arrival: Ambulatory History of Present Illness HPI Narrative: 28-year-old female. 6-1/2 weeks . Last evening started to have nausea vomiting and diarrhea. No vaginal bleeding. Has not tried anything for the symptoms. No recent travel. No recent antibiotics. Related Data Home Medications Medication Instructions Recorded Confirmed prenat.vits,shiva,uno-isos-thtos 1 tab PO DAILY 08/02/21 05/20/23 Previous Rx's Medication Instructions Recorded ondansetron 4 mg disintegrating 4 mg PO Q6H PRN nausea and 05/24/23 tablet vomiting #14 tabs Allergies Allergy/AdvReac Type Severity Reaction Status Date / Time Sulfa (Sulfonamide Allergy Severe SWOLLEN Verified 05/20/23 15:37 Antibiotics) THROAT [SULFA (SULFONAMIDE ANTIBIOTICS)] Review of Systems Constitutional Constitutional: Reports system reviewed and no additional complaints, except as documented Gastrointestinal Gastrointestinal: Reports system reviewed and no additional complaints, except as documented Genitourinary Genitourinary: Reports system reviewed and no additional complaints, except as documented Integumentary/Breasts Skin/Breast: Reports system reviewed and no additional complaints, except as documented Hematologic/Lymphatic On Anticoagulants: No Patient History Medical History RUQ abdominal pain Anxiety and depression (~2015) Hypothyroidism (~2017) Ovarian cyst (~2011) Chicken pox (~1993) Infertility (~2020) Abnormal Pap smear of cervix (~2014) Viral URI Chronic fatigue Right wrist sprain Depression Elevated TSH Suicidal ideation Alcohol intoxication Laceration of chin Surgical History (Updated 05/20/23 @ 15:46 by Mala Wyatt RN) Anesthesia S/P skin biopsy History of tonsillectomy [place] teeth extracted Family History (Updated 05/20/23 @ 15:48 by Mala Wyatt RN) Grandmother Diabetes mellitus Lung cancer Smoker Grandfather Stroke Myocardial infarction Hypertension History of heart disease Grandfather Stroke Family/Other Malignant hyperthermia Multiple sclerosis Father Hypertension HPV (human papilloma virus) infection Cancer Mother Pre-diabetes Sister Schizophrenia Bipolar disorder Social History marital status: unmarried,living together number of children: 2 household members: spouse, children and other lives independently: Yes caregiver/support person: Yes housing: house pets and animals: Yes (3 dogs) education level: college (associate's degree) occupational status: employed (NICU nurse) 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, rotating shifts) special yudith needs: No travel history: recent (domestic only) seatbelt use: always helmet use: Yes water heater temp set < 120 deg: Yes working smoke detector in home: Yes fire extinguisher in home: Yes carbon monox detector in home: Yes firearms in home: No do you feel safe at home: Yes Smoking Status: Never smoker second hand exposure: No alcohol intake: former (~1 day/week when not ) substance use type: does not use during the past year weight has: remained stable well-balanced diet: about half the time daily servings fruits/ve-4 caffeine: Yes (1-2 shots espresso on work days) Type(s) of exercise: walking Smoking Status: Never smoker alcohol intake frequency: a few times a month Substance Use Type: does not use Exam Initial Vital Signs Initial Vital Signs: Vital Signs Temperature 98.1 F 05/24/23 14:37 Pulse Rate 135 H 05/24/23 14:37 Respiratory Rate 20 05/24/23 14:37 Blood Pressure 117/67 05/24/23 14:37 Pulse Oximetry 97 05/24/23 14:37 Oxygen Delivery Method Room Air 05/24/23 14:37 Const General: cooperative, comfortable and No ill appearing HENSD Head: normal to inspection and normocephalic Resp Effort & Inspection: normal respiratory effort Auscultation: clear to auscultation bilaterally Cardio Rate: regular rate Rhythm: regular rhythm GI Inspection: normal to inspection Skin General: no rashes or lesions noted Neuro General: patient alert, patient awake, patient oriented x3 and moves all extremities Extrem General: capillary refill normal Course Orders Ordered: ED Orders 05/24/23 14:48 US OB <= 14 weeks fetus Stat 05/24/23 15:04 Complete Blood Count AUTO DIFF Stat Comprehensive Metabolic Panel Stat Covid-19 + FLU A/B + RSV - PCR Stat 05/24/23 15:41 Urinalysis and Microscopic Stat Discontinued Medications Sodium Chloride (Normal Saline 0.9%) 1,000 mls @ 1,000 mls/hr IV BOLUS ONE Stop: 05/24/23 15:47 Last Infusion: 05/24/23 16:06 Dose: Infused Documented By: Admin: 05/24/23 15:02 Dose: 1,000 mls/hr Documented By: MARIE Sodium Chloride (Normal Saline 0.9%) 1,000 mls @ 1,000 mls/hr IV BOLUS ONE Stop: 05/24/23 18:50 Metoclopramide HCl (Metoclopramide 10 Mg/2 Ml Inj) 10 mg IV NOW ONE Stop: 05/24/23 17:11 Last Admin: 05/24/23 17:15 Dose: 10 mg Documented By: MARIE Ondansetron HCl (Ondansetron 4 Mg/2 Ml Inj) 4 mg IV NOW ONE Stop: 05/24/23 14:49 Last Admin: 05/24/23 15:02 Dose: 4 mg Documented By: MARIE Promethazine HCl (Promethazine 25 Mg Tablet) 25 mg PO NOW ONE Stop: 05/24/23 17:52 Vital Signs Vital signs: Vital Signs - 8 hr 05/24/23 17:31 05/24/23 18:12 05/24/23 18:12 Temperature Pulse Rate 99 H 108 H Respiratory Rate Blood Pressure 103/62 Pulse Oximetry 99 100 Oxygen Delivery Method 05/24/23 18:13 Temperature 98.6 F Pulse Rate 100 H Respiratory Rate 16 Blood Pressure 103/62 Pulse Oximetry 100 Oxygen Delivery Method Room Air MDM - Nausea/Vomiting/Diarrhea Lab Data Attestation: I reviewed the patient's lab results. 05/24/23 15:04 05/24/23 15:04 Labs: Lab Results 05/24/23 05/24/23 Range/Units 15:04 15:41 WBC 16.9 H D (4.5-11.0) X10^3/uL RBC 5.06 (4.0-5.2) X10^6/uL Hgb 15.4 (12.0-16.0) g/dL Hct 44.7 (36-46) % MCV 88.4 (80-100) fL MCH 30.3 (26-34) PG MCHC 34.3 (30-36) % RDW 13.2 (11.6-14.8) % Plt Count 293 (150-400) X10^3/uL Neut % (Auto) 94.6 H D (50-75) % Lymph % (Auto) 2.4 L (25-40) % Harper % (Auto) 2.4 L (3-14) % Eos % (Auto) 0.5 L (2-4) % Baso % (Auto) 0.1 (0-2) % Neut # (Auto) 75793 H (3098-5410) /uL Lymph # (Auto) 400 L (3392-3248) /uL Harper # (Auto) 400 (0-900) /uL Eos # (Auto) 100 (0-450) /uL Baso # (Auto) 0 (0-100) /uL Sodium 138 (137-145) mmol/L Potassium 3.9 (3.4-5.1) mmol/L Chloride 107 (98-107) mmol/L Carbon Dioxide 20 L (22-32) mmol/L BUN 11 (7-17) mg/dL Creatinine 0.55 (0.52-1.04) mg/dL Estimated GFR > 60 (>60) mL/min BUN/Creatinine Ratio 20.0 (6-22) Glucose 116 H (70-100) mg/dL Calcium 10.0 (8.4-10.2) mg/dL Total Bilirubin 1.9 H (0.2-1.3) mg/dL AST 25 (14-36) IU/L ALT 16 (<35) IU/L Alkaline Phosphatase 74 (38-126) U/L Total Protein 8.7 H (6.3-8.2) g/dL Albumin 5.0 (3.5-5.0) g/dL Globulin 3.7 (1.7-4.1) g/dL Albumin/Globulin Ratio 1.4 (1.0-2.8) Urine Color Yellow Urine Appearance Slightly cloudy Urine pH 5.5 (4.5-8.0) Ur Specific [place] >=1.030 H (1.000-1.035) Urine Protein 1+ H (Negative) Urine Glucose (UA) Negative (Negative) g/dL Urine Ketones 1+ H (NEGATIVE) Urine Occult Blood Negative (Negative) Urine Nitrate Negative (Negative) Urine Bilirubin Negative (NEGATIVE) Urine Urobilinogen 0.2 (0.2) E.U./dL Ur Leukocyte Esterase Negative (NEGATIVE) Urine RBC 0-1/hpf (0-5/HPF) Urine WBC None seen (0-5/HPF) Ur Squamous Epith Cells 0-1 /hpf (0-5/HPF) Urine Bacteria Occasional (0-1) (None) Urine Mucus 1+ H (Negative) Ur Culture Indicated? Cult not indicated Vol Urine Centrifuged 10ml (spun) SARS-CoV-2 (PCR) Negative (Negative) Influenza A (RT-PCR) Flu a negative (NEGATIVE) Influenza B (RT-PCR) Flu b negative (NEGATIVE) RSV (PCR) Negative (Negative) Imaging Data US - OB: Radiologist's Impression: PROCEDURE: US OB <= 14 WEEKS FETUS INDICATIONS: hyperemesis/ 6.5 weeks/ cramping OUTSIDE/PRIOR DATING DATA: Last menstrual period (LMP): 04/21/23 LMP-based estimated date of delivery (YOBANY): 01/12/24. First dating scan (date and location): This study. Estimated date of delivery (YOBANY) from first dating scan: 01/14/24. The calculations are made using the current YOBANY above. TECHNIQUE: Real-time scanning was performed of the fetus and maternal pelvic organs, with image documentation. Endovaginal scanning was also performed to better visualize the fetus and maternal ovaries. COMPARISON: None. FINDINGS: Embryo: There is a single living intrauterine gestation, yolk sac visualized, cardiac activity at 132 beats per minute was seen. Note is made of a small 9 x 15 mm perigestational bleed superior to the gestational sac. Heart rate: 132 Maternal organs: Ovaries normal considering gestational status. IMPRESSION: Single living intrauterine gestation with a very small adjacent perigestational hemorrhage measuring only 9 x 15 mm. Follow-up anatomic survey ultrasound is recommended at approximately MDM Narrative Medical decision making narrative: Patient states she is feeling better after medications. Has not had any vomiting or diarrhea since coming here to the emergency department. No specific OB related complaints. ultrasound is unremarkable. Will discharge patient home with prescription for antinausea medicine. There was no indication for antibiotics. She was given return precautions. Will have her keep all of her scheduled OB appointments. She expressed understanding and agreement with plan. Discharge Plan Departure Patient Disposition: Home Clinical Impression: , Nausea, Diarrhea Instructions: DI for Vomiting -- Adult Activity Restrictions/Additional Instructions: Be sure that you were increasing your fluid intake. Keep all of your scheduled medical appointments. Nausea medication was sent to [facility]. Please use it as directed and as needed. Return to the emergency department for new or worsening symptoms. Prescriptions: New ondansetron 4 mg tablet,disintegrating 4 mg PO Q6H PRN (Reason: nausea and vomiting) Qty: 14 0RF No Action prenat.vits,shiva,[id number]-[id number] Tablet 1 tab PO DAILY Referrals: Margarita Bartholomew MD [Primary Care Provider] - Stand Alone Forms: Patient Portal/API
[2023-05-24 18:12] VITALS: BP 103/62; PULSE 108; O2SAT 100
[2023-05-24 18:13] VITALS: BP 103/62; PULSE 100; RESP 16; TEMP 37; O2SAT 100
== END 2023-05-24 18:16 | disposition home or self-care (01) ==
PROVIDERS: Emergency Medicine; Emergency Provider Emergency Medicine; PCP Student in an Organized Health Care Education/Training Program
DX: O21.9 Vomiting of pregnancy, unspecified (principal); R19.7 Diarrhea, unspecified; Z3A.01 Less than 8 weeks gestation of pregnancy; Z20.822 Contact with and (suspected) exposure to COVID-19
CPT/HCPCS: 0241U; 36415; 76801; 80053; 81001; 85025; 96361; 96374; 96375; 99284; J2405; J2765

== ENCOUNTER → 2023-06-14 14:26 | Outpatient (CLI) | payer OTHER, MEDICAID, SELFPAY ==
[2023-06-14 20:23] LABS: Urine N gonorrhoeae NOT DETECTED
[2023-06-14 21:09] LABS: Urine Chlamydia NOT DETECTED
== END ==
PROVIDERS: PCP Student in an Organized Health Care Education/Training Program; Visit Provider Specialist
DX: Z11.3 Encounter for screening for infections with a predominantly sexual mode of transmission (principal); Z3A.09 9 weeks gestation of pregnancy
CPT/HCPCS: 87491; 87591

== ENCOUNTER → 2023-06-25 13:55 | Outpatient (CLI) | payer OTHER, MEDICAID, SELFPAY ==
[2023-06-25 15:06] LABS: Natera Collection Specimen Collected
[2023-06-25 17:33] LABS: HIV 1 & 2 Ab/Ag 4th Gen Combo NEGATIVE (NEGATIVE); Hep C Virus Ab w/Reflex Quant NEGATIVE s/c (NEGATIVE)
== END ==
PROVIDERS: Obstetrics & Gynecology; PCP Student in an Organized Health Care Education/Training Program; Referring Provider Specialist; Visit Provider Specialist
DX: Z34.81 Encounter for supervision of other normal pregnancy, first trimester (principal); Z3A.10 10 weeks gestation of pregnancy
CPT/HCPCS: 36415; 86787; 86803; 86850; 86900; 86901; 87086; 87389

== ENCOUNTER → 2023-07-29 08:58 | Outpatient (CLI) | payer OTHER, MEDICAID, SELFPAY ==
[2023-07-29 10:27] LABS: Appearance Urine UA CLEAR; Bilirubin Urine UA NEGATIVE (NEGATIVE); Color Urine UA YELLOW; Glucose Urine UA NEGATIVE (Negative); Ketones Urine UA NEGATIVE (NEGATIVE); Leukocyte Esterase Urine UA NEGATIVE (NEGATIVE); Nitrite Urine UA NEGATIVE (Negative); Occult Blood Urine UA NEGATIVE (Negative); Protein Urine UA NEGATIVE (Negative); Specific Gravity Urine UA 1.015 (1.000-1.035); Urobilinogen Urine UA 0.2 E.U./dL (0.2)
[2023-07-29 10:29] LABS: pH Urine UA 6.5 (4.5-8.0)
[2023-07-29 10:31] LABS: Urine Volume 10mL (spun)
[2023-07-29 10:32] LABS: Bacteria Urine None Seen; Culture Indicated Urine Cult Not Indicated; RBC Urine None Seen (0-5/HPF); Squamous Epithelial Cell Urine None Seen (0-5/HPF); WBC Urine None Seen (0-5/HPF)
== END ==
PROVIDERS: PCP Student in an Organized Health Care Education/Training Program; Referring Provider Obstetrics & Gynecology; Visit Provider Obstetrics & Gynecology
DX: Z20.828 Contact with and (suspected) exposure to other viral communicable diseases (principal); R30.0 Dysuria; Z34.90 Encounter for supervision of normal pregnancy, unspecified, unspecified trimester
CPT/HCPCS: 36415; 81001; 86644; 86645

== ENCOUNTER → 2023-07-30 11:07 | Outpatient (CLI) | payer OTHER, MEDICAID, SELFPAY ==
--- NOTE | 2023-07-30 11:08 | DI.US.S_ITS ---
PROCEDURE: US RENAL COMPLETE INDICATIONS: RIGHT KIDNEY PAIN TECHNIQUE: Real-time scanning was performed of the kidneys and bladder, with image documentation. COMPARISON: None. FINDINGS: Kidneys: Kidneys are normal in size. Right kidney measures 9.7 cm long; left kidney measures 11 cm long. Right renal cortical thickness is 1.8 cm; left renal cortical thickness is 1.7 cm. Renal cortical echotexture is normal. No hydronephrosis or nephrolithiasis. No suspicious solid mass lesions. Bladder: Pre-void bladder volume is 107 mL. Post-void residual is 0 mL. Pre-void images demonstrate no intraluminal masses or stones. On pre-void images, neither ureteral jets are noted with color Doppler interrogation. (Of note, ureteral jets may not be detectable in up to 25% of cases due to insufficient differences in specific gravity between ureteral and bladder urine). Miscellaneous: No free pelvic fluid. Gravid uterus. heart tones of 147 beats per minute. IMPRESSION: Normal renal ultrasound. No hydronephrosis or sonographic evidence of nephrolithiasis. Dictated by: Toby Botello M.D. on 07/30/2023 at 13:46 Approved by: Toby Botello M.D. on 07/30/2023 at 13:47
== END ==
PROVIDERS: PCP Student in an Organized Health Care Education/Training Program; Referring Provider Obstetrics & Gynecology; Visit Provider Obstetrics & Gynecology
DX: M54.9 Dorsalgia, unspecified (principal); R10.9 Unspecified abdominal pain; O99.891 Other specified diseases and conditions complicating pregnancy
CPT/HCPCS: 76770

== ENCOUNTER → 2023-08-15 17:14 | Outpatient (CLI) | payer OTHER, MEDICAID, SELFPAY ==
[2023-08-20 21:10] LABS: AFP Value 49.9 ng/mL (.); Gest Age on Col Date 18.3 weeks (.); Insulin Dep Diabetes No (.); OSBR Risk 1IN 10000 (.); Results Report (.); Test Results *Screen Negative* (.)
== END ==
PROVIDERS: PCP Student in an Organized Health Care Education/Training Program; Referring Provider Obstetrics & Gynecology; Visit Provider Obstetrics & Gynecology
DX: Z34.82 Encounter for supervision of other normal pregnancy, second trimester (principal); Z3A.16 16 weeks gestation of pregnancy
CPT/HCPCS: 36415; 82105; 86645

== ENCOUNTER → 2023-08-28 08:03 | Outpatient (CLI) | payer OTHER, MEDICAID, SELFPAY ==
--- NOTE | 2023-08-28 08:04 | DI.US.S_ITS ---
PROCEDURE: US OB >= 14 WEEKS FETUS INDICATIONS: 20 week anatomy scan OUTSIDE/PRIOR DATING DATA: Last menstrual period (LMP): 04/21/2023 LMP-based estimated date of delivery (YOBANY): 01/12/2024. First dating scan (date and location): 05/22/2023. Estimated date of delivery (YOBANY) from first dating scan: 01/14/2024. The calculations are made using the working YOBANY of 01/07/2021. TECHNIQUE: Real-time scanning was performed of the fetus, with image documentation and biometric measurements. Endovaginal scanning: No COMPARISON: [facility], , OB >= 14 WEEKS FETUS, 10/18/2021, 10:41. FINDINGS: General: A single living intrauterine gestation is present. Presentation: Vertex. Placenta: Placental position is anterior , without previa. Amniotic fluid index: 14.7 cm, normal range is 5-24 cm. Single deepest vertical pocket is 4.4 cm. heart rate: 137 beats per minute. Maternal cervical canal: 2.9 cm long. Normal lower limit is 2.5 cm. biometrics: Biparietal diameter: 4.7 cm, 20 week 3 day Head circumference: 18.4 cm, 20 week 5 day Abdominal circumference: 16.2 cm, 21 week 2 day Femur length: 3.6 cm, 21 week 3 day Clinically estimated gestational age: 20 week 3 day Composite gestational age from present scan: 21 week 0 day Estimated weight and percentile: 412 g, 88 percentile Anatomic survey: Neuro: Ventricles are non-dilated at less than 10 mm. Cisterna magna is normal at 3-11 mm. Cerebellum is normal in size and morphology. Nuchal skin fold: Normal at less than 6 mm between 14-21 weeks gestational age. Face: Nose and lips, facial profile are normal. Spine: No evidence for spina bifida. Heart: 4-chambered heart is present, with normal ventricular outflow tracts. Diaphragm: Diaphragm is intact. Stomach: Left-sided stomach is present. Kidneys: No hydronephrosis. Normal is less than 5 mm in 2nd trimester, less than 7 mm in 3rd trimester. Cord: 3-vessel cord has orthotopic insertion. Bladder: Normal in size. Extremities: All 4 extremities identified. IMPRESSION: Single live intrauterine corresponds with a 21 week 0 day gestation by current ultrasound. Normal anatomic survey Approved by: Perry Clemens M.D. on 08/28/2023 at 15:04
== END ==
PROVIDERS: PCP Student in an Organized Health Care Education/Training Program; Referring Provider Obstetrics & Gynecology; Visit Provider Obstetrics & Gynecology
DX: Z34.82 Encounter for supervision of other normal pregnancy, second trimester (principal); Z3A.21 21 weeks gestation of pregnancy
CPT/HCPCS: 76811

== ENCOUNTER → 2023-09-28 16:00 | Outpatient (CLI) | payer OTHER, MEDICAID, SELFPAY | PROVIDERS: PCP Student in an Organized Health Care Education/Training Program; Visit Provider Registered Nurse | DX: J02.9 Acute pharyngitis, unspecified (principal) | CPT/HCPCS: 87070 ==

== ENCOUNTER → 2023-10-04 08:32 | Outpatient (CLI) | payer OTHER, MEDICAID, SELFPAY ==
[2023-10-04 10:20] LABS: Hematocrit 33.6 % (36-46); Hemoglobin 11.6 g/dL (12.0-16.0)
[2023-10-04 10:38] LABS: GTT (PREG) 1 Hour PP 50gm Dose 76 mg/dL (76-139)
== END ==
PROVIDERS: Specialist; PCP Student in an Organized Health Care Education/Training Program; Referring Provider Obstetrics & Gynecology; Visit Provider Obstetrics & Gynecology
DX: Z34.82 Encounter for supervision of other normal pregnancy, second trimester (principal); Z20.828 Contact with and (suspected) exposure to other viral communicable diseases; Z3A.26 26 weeks gestation of pregnancy
CPT/HCPCS: 36415; 82950; 85014; 85018; 86645

== ENCOUNTER 2023-10-11 16:53 | Observation (INO) | payer OTHER, MEDICAID, SELFPAY ==
[2023-10-11 17:20] LABS: Appearance Urine UA CLEAR; Bilirubin Urine UA NEGATIVE (NEGATIVE); Color Urine UA YELLOW; Glucose Urine UA NEGATIVE (Negative); Ketones Urine UA NEGATIVE (NEGATIVE); Leukocyte Esterase Urine UA NEGATIVE (NEGATIVE); Nitrite Urine UA NEGATIVE (Negative); Occult Blood Urine UA NEGATIVE (Negative); Protein Urine UA NEGATIVE (Negative); Specific Gravity Urine UA <=1.005 (1.000-1.035); Urobilinogen Urine UA 0.2 E.U./dL (0.2)
[2023-10-11 17:26] LABS: Bacteria Urine Occasional (0-1); Culture Indicated Urine Cult Not Indicated; RBC Urine 0-1/HPF (0-5/HPF); Squamous Epithelial Cell Urine 0-1 /HPF (0-5/HPF); Urine Volume 10mL (spun); WBC Urine None Seen (0-5/HPF)
[2023-10-11 18:39] LABS: Fetal Fibronectin Negative
--- NOTE | 2023-10-11 18:50 | P.TNLD_ITS ---
Visit Information Visit Information Date of evaluation: 10/11/23 Primary OB Provider: Madiha Ordaz On-call OB Provider: Sonia Manzano Reason for Evaluation: Yes pre-term labor Comments/Additional reasons for admission: Patient came in concerned because she had 3 strong contractions on top of her persistent Monty Tobin since 20 weeks yesterday. They subsided and then today she had a couple more episodes of strong contractions but her concern was also that she had some bright red blood when she wiped after urinating. Good movement. Patient concerned because in previous times when she was in labor she did not have significant pain until the very end of delivering. Since being here the patient has only felt 2 strong contractions. Patient has not been working these last few days. She feels like she is doing well with her fluid intake. Vital Signs Vital Signs: Temperature 98.2? blood pressure 103/63, pulse of 84 PFSH Medical History RUQ abdominal pain Anxiety and depression (~2015) Hypothyroidism (~2016) Ovarian cyst (~2011) Chicken pox (~1993) Infertility (~2020) Abnormal Pap smear of cervix (~2014) Viral URI Chronic fatigue Right wrist sprain Depression Elevated TSH Suicidal ideation Alcohol intoxication Laceration of chin Surgical History Anesthesia S/P skin biopsy History of tonsillectomy [place] teeth extracted Family History Grandmother Diabetes mellitus Lung cancer Smoker Grandfather Stroke Myocardial infarction Hypertension History of heart disease Grandfather Stroke Family/Other Malignant hyperthermia Multiple sclerosis Father Hypertension HPV (human papilloma virus) infection Cancer Mother Pre-diabetes Sister Schizophrenia Bipolar disorder Social History marital status: unmarried,living together number of children: 2 household members: spouse, children and other lives independently: Yes caregiver/support person: Yes housing: house pets and animals: Yes (3 dogs) education level: college (associate's degree) 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, rotating shifts) special yudith needs: No travel history: recent (domestic only) seatbelt use: always helmet use: Yes water heater temp set < 120 deg: Yes working smoke detector in home: Yes fire extinguisher in home: Yes carbon monox detector in home: Yes firearms in home: No do you feel safe at home: Yes Smoking Status: Never smoker second hand exposure: No alcohol intake: former (~1 day/week when not ) substance use type: does not use during the past year weight has: remained stable well-balanced diet: about half the time daily servings fruits/ve-4 caffeine: Yes (1-2 shots espresso on work days) Type(s) of exercise: walking Objective Labs Labs: Laboratory Results - last 24 hr 10/11/23 10/11/23 17:00 17:55 Urine Color Yellow Urine Appearance Clear Urine pH 6.0 Ur Specific [place] <=1.005 Urine Protein Negative Urine Glucose (UA) Negative Urine Ketones Negative Urine Occult Blood Negative Urine Nitrate Negative Urine Bilirubin Negative Urine Urobilinogen 0.2 Ur Leukocyte Esterase Negative Urine RBC 0-1/hpf Urine WBC None seen Ur Squamous Epith Cells 0-1 /hpf Urine Bacteria Occasional (0-1) Ur Culture Indicated? Cult not indicated Vol Urine Centrifuged 10ml (spun) Fibronectin Negative Evaluation Evaluation Baseline heart rate: 140 Variability: Moderate (11-25) monitor accelerations: Present Monitor Decelerations: Absent Contraction Frequency (minutes): 6 Uterine Contraction Intensity: Mild Category of Tracing: Reactive Status: Category l Cervical dilation (cm): 0 Cervical effacement (%): 0 station: -4 Non-invasive Membranes Rupture Test: negative Comments: fibronectin negative UA negative Speculum exam there is no blood in the vagina and cervix appeared long and closed. Sterile vaginal exam did not reveal any change in the cervix. Diagnosis, Plan/Disposition Final Diagnosis (1) Pelvic cramping in antepartum period: Status: Acute (2) 26 weeks gestation of : Status: Acute Plan/Disposition Plan: No evidence change in cervix or active bleeding with uterine irritability on the monitor. Patient is to push fluids, rest, no intercourse. Call if pain increases or further bleeding. OB Disposition: home
[2023-10-11 19:40] LABS: Strep Grp B PCR NEG for Grp B Strep
== END 2023-10-11 18:50 | disposition home or self-care (01) ==
LOC: LABOR 16:55
PROVIDERS: Student in an Organized Health Care Education/Training Program; Admitting Provider Obstetrics & Gynecology; PCP Student in an Organized Health Care Education/Training Program; Referring Provider Obstetrics & Gynecology; Visit Provider Obstetrics & Gynecology
DX: O26.892 Other specified pregnancy related conditions, second trimester (principal); R10.2 Pelvic and perineal pain; Z3A.26 26 weeks gestation of pregnancy
CPT/HCPCS: 59025; 59050; 81001; 82731; 84112; 87081; 87147; 87653; G0378; G0379

== ENCOUNTER 2023-10-22 08:59 | Outpatient (CLI) | payer OTHER, MEDICAID, SELFPAY ==
--- NOTE | 2023-10-22 09:06 | DI.US.S_ITS ---
PROCEDURE: US OB LIMITED INDICATIONS: R/O labor OUTSIDE/PRIOR DATING DATA: Last menstrual period (LMP): 04/21/23. LMP-based estimated date of delivery (YOBANY): 01/12/24. First dating scan (date and location): 05/22/23. Estimated date of delivery (YOBANY) from first dating scan: 01/14/24. The calculations are made using the working YOBANY of 01/08/24. TECHNIQUE: Real-time scanning was performed of the fetus, with image documentation. Endovaginal scanning: Performed for cervical detail. COMPARISON: None. FINDINGS: A single living intrauterine gestation is present. Presentation: Vertex, spine to maternal left. Placenta: Placental position is anterior, without previa. Amniotic fluid index: 16.8 cm, normal range is 5-24 cm. Single deepest vertical pocket is 5.2 cm. heart rate: 141 beats per minute. Maternal cervical canal: Closed and 3.7 cm long. Normal lower limit is 2.5 cm. Clinical gestational age is 28 weeks six days. IMPRESSION: Single living intrauterine in vertex presentation. Closed cervix and normal amniotic fluid volume. Dictated by: Irma Foy M.D. on 10/22/2023 at 13:33 Approved by: Irma Foy M.D. on 10/22/2023 at 13:36
[2023-10-22 10:59] LABS: Fetal Fibronectin Negative
== END 2023-10-22 10:17 | disposition home or self-care (01) ==
LOC: LABOR 10:05 → OB 10-23 09:43
PROVIDERS: PCP Student in an Organized Health Care Education/Training Program; Referring Provider Obstetrics & Gynecology; Visit Provider Obstetrics & Gynecology
DX: O47.03 False labor before 37 completed weeks of gestation, third trimester (principal); Z3A.28 28 weeks gestation of pregnancy
CPT/HCPCS: 59025; 76815; 82731; G0378; G0379

== ENCOUNTER → 2023-11-12 15:06 | Outpatient (CLI) | payer OTHER, MEDICAID, SELFPAY | PROVIDERS: PCP Student in an Organized Health Care Education/Training Program; Visit Provider Student in an Organized Health Care Education/Training Program | DX: N89.8 Other specified noninflammatory disorders of vagina (principal) | CPT/HCPCS: 87480; 87510; 87660 ==

== ENCOUNTER 2023-12-01 16:31 | Observation (INO) | payer OTHER, MEDICAID, SELFPAY ==
--- NOTE | 2023-12-01 18:48 | PM.OBTRLD ---
Visit Information Visit Information Date of evaluation: 12/01/23 Primary OB Provider: Madiha Ordaz On-call OB Provider: Denia Pedro Comments/Additional reasons for admission: 28yo at 33w5d d=9wk US presents for further evaluation, new onset fundal tenderness with contractions since early afternoon following a very bumpy/violent tractor ride. Patient states that she realized almost immediately that the tractor ride was going to be too rough but was unable to get off; reports being whipped around with large bumps. Immediately following ride pt reports onset of upper abdominal pain. Pt called on-call physician and was instructed to present to triage for further evaluation. +FM however states movements do not feel as strong as normal. Denies vaginal bleeding, LOF. Reactive Cat 1 tracing per CEFM, initial low-grade uterine irritiability that organized to distinct contractions q5-6min within first 2h of monitoring with increase in fundal tenderness with a sharp pain at the fundus with each contraction. Normotensive, NAD Vital Signs Vital Signs: BP 104/74 HR 84 Afebrile [facility] Medical History RUQ abdominal pain Anxiety and depression (~2015) Hypothyroidism (~2016) Ovarian cyst (~2011) Chicken pox (~1993) Infertility (~2020) Abnormal Pap smear of cervix (~2014) Viral URI Chronic fatigue Right wrist sprain Depression Elevated TSH Suicidal ideation Alcohol intoxication Laceration of chin Surgical History Anesthesia S/P skin biopsy History of tonsillectomy [place] teeth extracted Family History Grandmother Diabetes mellitus Lung cancer Smoker Grandfather Stroke Myocardial infarction Hypertension History of heart disease Grandfather Stroke Family/Other Malignant hyperthermia Multiple sclerosis Father Hypertension HPV (human papilloma virus) infection Cancer Mother Pre-diabetes Sister Schizophrenia Bipolar disorder Social History marital status: unmarried,living together number of children: 2 household members: spouse, children and other lives independently: Yes caregiver/support person: Yes housing: house pets and animals: Yes (3 dogs) education level: college (associate's degree) occupational status: employed (NICU nurse) 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, rotating shifts) special yudith needs: No travel history: recent (domestic only) seatbelt use: always helmet use: Yes water heater temp set < 120 deg: Yes working smoke detector in home: Yes fire extinguisher in home: Yes carbon monox detector in home: Yes firearms in home: No do you feel safe at home: Yes Smoking Status: Never smoker second hand exposure: No alcohol intake: former (~1 day/week when not ) substance use type: does not use during the past year weight has: remained stable well-balanced diet: about half the time daily servings fruits/ve-4 caffeine: Yes (1-2 shots espresso on work days) Type(s) of exercise: walking Review of Systems Review of Systems ROS: Yes All systems reviewed with the patient and are negative except as otherwise documented Exam Vital Signs (past 8 hours): BP 115/70 HR 81 afebrile Const General: cooperative, comfortable and No acute distress Nutritional Appearance: average body habitus and other (gravid ) Orientation: alert, awake and oriented x3 Limitations: mental status not altered HENMT Head: normal to inspection Resp Effort & Inspection: normal respiratory effort Cardio Pulses: normal peripheral pulses GI Inspection: normal to inspection Other: gravid, uterus palpates soft, mild TTP at fundus not reproduced on US Transabdominal US: Active longoria fetus in cephalic presentation subjectively adequate fluid fundal/anterior placenta, noted area of lucency at L leading edge 0.5cm, no active bleeding outside of vessels per application of color doppler, fluid appears clear without significant particulate Other: ftp/thk/hi Skin General: no rashes or lesions noted Neuro General: patient alert, patient awake and patient oriented x3 Extrem General: normal to inspection Psych Mental Status: mental status grossly normal Judgment: judgment good Objective Labs 12/01/23 18:53 Evaluation Evaluation Baseline heart rate: 120 Variability: Moderate (11-25) monitor accelerations: Present Monitor Decelerations: Absent Contraction Frequency (minutes): 5 Uterine Contraction Intensity: Moderate Category of Tracing: Reactive Status: Category l Comments: non-laboring cervix Diagnosis, Plan/Disposition Plan/Disposition Plan: 28yo at 33w5d d=9wk US presents to triage for further evaluation, recent sustained moderate-impact trauma with fundal tenderness and contractions, unable to exclude partial abruption Abdominal pain, unable to exclude partial abruption Cat 1 tracing, increasingly organized and strong contractions however no appreciable cervical dilation CBC, T&S and fibrinogen ordered, pending and will follow Patient counseled on recommendation for overnight observation secondary to mechanism as well as persistent contractions, pt in agreement continue CEFM, toco gentle IVF pt declines nifedipine secondary to historical symptomatic relative hypotension; if contractions worsen amenable to terbutaline pt declines PO tylenol for pain, aware this is available PRN dispo: 23h observation
[2023-12-01 19:04] LABS: Add Manual Diff / Slide Review NO; Basophils Absolute Auto 100 /uL (0-100); Basophils Percent Auto 0.6 % (0-2); Eosinophils Absolute Auto 100 /uL (0-450); Eosinophils Percent Auto 0.4 % (2-4); Hematocrit 35.7 % (36-46); Hemoglobin 12.3 g/dL (12.0-16.0); Lymphocytes Absolute Auto 2200 /uL (1100-4500); Lymphocytes Percent Auto 13.8 % (25-40); Mean Corpuscular HGB Conc 34.5 % (30-36); Mean Corpuscular Hemoglobin 32.2 PG (26-34); Mean Corpuscular Volume 93.5 fL (80-100); Monocytes Absolute Auto 1100 /uL (0-900); Monocytes Percent Auto 6.8 % (3-14); Neutrophils Absolute Auto 12600 /uL (1500-7000); Neutrophils Percent Auto 78.4 % (50-75); Platelet Count 225 X10^3/uL (150-400); Red Blood Cell Count 3.82 X10^6/uL (4.0-5.2); White Blood Cell Count 16.1 X10^3/uL (4.5-11.0)
[2023-12-01 19:21] LABS: Fibrinogen 375 mg/dL (238-498)
[2023-12-01] MEDS: LACTATED RINGERS 1,000 ML 1000 ML IV (19:25)
== END 2023-12-01 22:09 | disposition home or self-care (01) ==
LOC: LABOR 16:32
PROVIDERS: Admitting Provider Obstetrics & Gynecology; PCP Student in an Organized Health Care Education/Training Program; Referring Provider Obstetrics & Gynecology; Visit Provider Obstetrics & Gynecology
DX: O47.03 False labor before 37 completed weeks of gestation, third trimester (principal); O26.893 Other specified pregnancy related conditions, third trimester; R10.10 Upper abdominal pain, unspecified; Z3A.33 33 weeks gestation of pregnancy
CPT/HCPCS: 36415; 59025; 59050; 76815; 85025; 85384; 86850; 86900; 86901; 96360; G0378; G0379

== ENCOUNTER 2023-12-03 12:00 | Observation (INO) | payer OTHER, MEDICAID, SELFPAY ==
[2023-12-03 12:27] LABS: Appearance Urine UA CLEAR; Bilirubin Urine UA NEGATIVE (NEGATIVE); Color Urine UA YELLOW; Glucose Urine UA NEGATIVE (Negative); Ketones Urine UA NEGATIVE (NEGATIVE); Leukocyte Esterase Urine UA NEGATIVE (NEGATIVE); Nitrite Urine UA NEGATIVE (Negative); Occult Blood Urine UA NEGATIVE (Negative); Protein Urine UA NEGATIVE (Negative); Urobilinogen Urine UA 0.2 E.U./dL (0.2)
[2023-12-03 12:49] LABS: Bacteria Urine None Seen; Culture Indicated Urine Cult Not Indicated; RBC Urine None Seen (0-5/HPF); Squamous Epithelial Cell Urine None Seen (0-5/HPF); Urine Volume 10mL (spun); WBC Urine None Seen (0-5/HPF)
[2023-12-03 14:47] LABS: Fetal Fibronectin Negative
--- NOTE | 2023-12-03 14:55 | P.TNLD_ITS ---
Visit Information Visit Information Date of evaluation: 12/03/23 On-call OB Provider: Mahnaz Sanford Reason for Evaluation: Yes pre-term labor and Yes rule out labor Comments/Additional reasons for admission: r/o labor Vital Signs Vital Signs: reviewed in OBIX, within normal parameters [facility] Medical History RUQ abdominal pain Anxiety and depression (~2015) Hypothyroidism (~2016) Ovarian cyst (~2011) Chicken pox (~1993) Infertility (~2020) Abnormal Pap smear of cervix (~2014) Viral URI Chronic fatigue Right wrist sprain Depression Elevated TSH Suicidal ideation Alcohol intoxication Laceration of chin Surgical History Anesthesia S/P skin biopsy History of tonsillectomy [place] teeth extracted Family History Grandmother Diabetes mellitus Lung cancer Smoker Grandfather Stroke Myocardial infarction Hypertension History of heart disease Grandfather Stroke Family/Other Malignant hyperthermia Multiple sclerosis Father Hypertension HPV (human papilloma virus) infection Cancer Mother Pre-diabetes Sister Schizophrenia Bipolar disorder Social History marital status: unmarried,living together number of children: 2 household members: spouse, children and other lives independently: Yes caregiver/support person: Yes housing: house pets and animals: Yes (3 dogs) education level: college (associate's degree) occupational status: employed (NICU nurse) 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, rotating shifts) special yudith needs: No travel history: recent (domestic only) seatbelt use: always helmet use: Yes water heater temp set < 120 deg: Yes working smoke detector in home: Yes fire extinguisher in home: Yes carbon monox detector in home: Yes firearms in home: No do you feel safe at home: Yes Smoking Status: Never smoker second hand exposure: No alcohol intake: former (~1 day/week when not ) substance use type: does not use during the past year weight has: remained stable well-balanced diet: about half the time daily servings fruits/ve-4 caffeine: Yes (1-2 shots espresso on work days) Type(s) of exercise: walking Review of Systems Review of Systems ROS: Yes All systems reviewed with the patient and are negative except as otherwise documented Exam Const General: comfortable and No acute distress Resp Effort & Inspection: normal respiratory effort and able to speak in complete sentences GI Other: soft, nontender Objective Labs Labs: Laboratory Results - last 24 hr 12/03/23 12/03/23 12:10 13:00 Urine Color Yellow Urine Appearance Clear Urine pH 7.0 Ur Specific Dewey 1.010 Urine Protein Negative Urine Glucose (UA) Negative Urine Ketones Negative Urine Occult Blood Negative Urine Nitrate Negative Urine Bilirubin Negative Urine Urobilinogen 0.2 Ur Leukocyte Esterase Negative Urine RBC None seen Urine WBC None seen Ur Squamous Epith Cells None seen Urine Bacteria None seen Ur Culture Indicated? Cult not indicated Vol Urine Centrifuged 10ml (spun) Fibronectin Negative Evaluation Evaluation Baseline heart rate: 140 Variability: Moderate (11-25) monitor accelerations: Present Monitor Decelerations: Absent Category of Tracing: Reactive Cervical dilation (cm): 1 Cervical effacement (%): 20 station: -2 Comments: FFN negative Diagnosis, Plan/Disposition Final Diagnosis (1) Pelvic cramping in antepartum period: Status: Acute Plan/Disposition Plan: 28yo at 34+0wks presented to triage for cramping and painful contractions. She notes her symptoms had improved after her last triage visit, but then intensified again today. Denied leaking fluid, vaginal bleeding, or decreased movement. Noted to have a reactive NST in triage. SVE remained unchanged after 2hrs of observation. FFN was negative. Given all of these findings, she was discharged to home with return precautions. -follow-up in clinic as scheduled this week on OB Disposition: home
== END 2023-12-03 14:59 | disposition home or self-care (01) ==
PROVIDERS: Student in an Organized Health Care Education/Training Program; Admitting Provider Obstetrics & Gynecology; PCP Student in an Organized Health Care Education/Training Program; Referring Provider Obstetrics & Gynecology; Visit Provider Obstetrics & Gynecology
DX: O26.893 Other specified pregnancy related conditions, third trimester (principal); R10.2 Pelvic and perineal pain; Z3A.34 34 weeks gestation of pregnancy
CPT/HCPCS: 59025; 59050; 81001; 82731; G0378; G0379

== ENCOUNTER 2023-12-07 18:31 | Outpatient (CLI) | payer OTHER, MEDICAID, SELFPAY ==
[2023-12-07 18:53] LABS: Appearance Urine UA CLEAR; Bilirubin Urine UA NEGATIVE (NEGATIVE); Color Urine UA YELLOW; Glucose Urine UA NEGATIVE (Negative); Ketones Urine UA 1+ (NEGATIVE); Leukocyte Esterase Urine UA NEGATIVE (NEGATIVE); Nitrite Urine UA NEGATIVE (Negative); Occult Blood Urine UA NEGATIVE (Negative); Protein Urine UA NEGATIVE (Negative); Specific Gravity Urine UA <=1.005 (1.000-1.035); Urobilinogen Urine UA 0.2 E.U./dL (0.2); pH Urine UA 6.5 (4.5-8.0)
[2023-12-07 18:59] LABS: Bacteria Urine Occasional (0-1); Culture Indicated Urine Cult Not Indicated; RBC Urine None Seen (0-5/HPF); Squamous Epithelial Cell Urine 1-5 /HPF (0-5/HPF); Urine Volume 10mL (spun); WBC Urine None Seen (0-5/HPF)
--- NOTE | 2023-12-07 19:29 | PM.OBTRLD ---
Visit Information Visit Information Date of evaluation: 12/07/23 Primary OB Provider: Madiha Ordaz On-call OB Provider: Jaye Jeter Reason for Evaluation: Yes rule out labor Comments/Additional reasons for admission: Patient is a 28 you at 34w4d presenting for contractions starting at 4:30. Very intense until 6:30 - occurring every 4-5 minutes. Called triage line and sent for evaluation. On arrival - denies any change in discharge. No fevers or recent illness. No VB or LOF. Good FM. While in triage, contractions returned to usual BH intensity for patient. She has been experiencing contractions for several weeks now. Taken off work at 30 weeks. Previously on nifedipine but did not tolerate. Most recently seen in triage 11/30 and 12/02 for contractions with reassuring workup including FFN, UA and serial exams. Last cervical exam was 12/02 -- per notes . [facility] Medical History RUQ abdominal pain Anxiety and depression (~2015) Hypothyroidism (~2016) Ovarian cyst (~2011) Chicken pox (~1993) Infertility (~2020) Abnormal Pap smear of cervix (~2014) Viral URI Chronic fatigue Right wrist sprain Depression Elevated TSH Suicidal ideation Alcohol intoxication Laceration of chin Surgical History Anesthesia S/P skin biopsy History of tonsillectomy [place] teeth extracted Family History Grandmother Diabetes mellitus Lung cancer Smoker Grandfather Stroke Myocardial infarction Hypertension History of heart disease Grandfather Stroke Family/Other Malignant hyperthermia Multiple sclerosis Father Hypertension HPV (human papilloma virus) infection Cancer Mother Pre-diabetes Sister Schizophrenia Bipolar disorder Social History marital status: unmarried,living together number of children: 2 household members: spouse, children and other lives independently: Yes caregiver/support person: Yes housing: house pets and animals: Yes (3 dogs) education level: college (associate's degree) occupational status: employed (NICU nurse) 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, rotating shifts) special yudith needs: No travel history: recent (domestic only) seatbelt use: always helmet use: Yes water heater temp set < 120 deg: Yes working smoke detector in home: Yes fire extinguisher in home: Yes carbon monox detector in home: Yes firearms in home: No do you feel safe at home: Yes Smoking Status: Never smoker second hand exposure: No alcohol intake: former (~1 day/week when not ) substance use type: does not use during the past year weight has: remained stable well-balanced diet: about half the time daily servings fruits/ve-4 caffeine: Yes (1-2 shots espresso on work days) Type(s) of exercise: walking Objective Labs Labs: Laboratory Results - last 24 hr 12/07/23 18:45 Urine Color Yellow Urine Appearance Clear Urine pH 6.5 Ur Specific Taylor <=1.005 Urine Protein Negative Urine Glucose (UA) Negative Urine Ketones 1+ H Urine Occult Blood Negative Urine Nitrate Negative Urine Bilirubin Negative Urine Urobilinogen 0.2 Ur Leukocyte Esterase Negative Urine RBC None seen Urine WBC None seen Ur Squamous Epith Cells 1-5 /hpf Urine Bacteria Occasional (0-1) Ur Culture Indicated? Cult not indicated Vol Urine Centrifuged 10ml (spun) Evaluation Evaluation Baseline heart rate: 130 Variability: Moderate (11-25) monitor accelerations: Present Monitor Decelerations: Absent Contraction Frequency (minutes): 4 Uterine Contraction Intensity: Mild Category of Tracing: Reactive Status: Category l Comments: Cervix 1 cm dilated, long, high per RN -- unchanged on exam 2 hr later Diagnosis, Plan/Disposition Plan/Disposition Plan: 28yo at 34+4wks presented to triage for cramping and painful contractions. She notes by time of arrival, symptoms improved and returned to intensity of her usual BH contractions. Denied leaking fluid, vaginal bleeding, or decreased movement. No infectious symptoms or trauma. Noted to have a reactive NST in triage. SVE remained unchanged after 2hrs of observation. Discharged to home with strict precautions F/u in clinic next week OB Disposition: home
== END 2023-12-07 21:35 | disposition home or self-care (01) ==
LOC: OB 12-12 09:57
PROVIDERS: PCP Student in an Organized Health Care Education/Training Program; Referring Provider Family Medicine; Visit Provider Family Medicine
DX: O47.03 False labor before 37 completed weeks of gestation, third trimester (principal); Z3A.34 34 weeks gestation of pregnancy
CPT/HCPCS: 59025; 59050; 81001; G0378; G0379

== ENCOUNTER 2023-12-17 15:46 | Outpatient (CLI) | payer OTHER, MEDICAID, SELFPAY | END 2023-12-17 16:50 | disposition home or self-care (01) | LOC: OB 12-18 09:57 | PROVIDERS: PCP Student in an Organized Health Care Education/Training Program; Referring Provider Specialist; Visit Provider Specialist | DX: O47.03 False labor before 37 completed weeks of gestation, third trimester (principal); Z3A.36 36 weeks gestation of pregnancy; Z87.59 Personal history of other complications of pregnancy, childbirth and the puerperium | CPT/HCPCS: 59025; 87210; G0378; G0379 ==

== ENCOUNTER → 2023-12-19 10:13 | Outpatient (CLI) | payer OTHER, MEDICAID, SELFPAY ==
[2023-12-20 12:23] LABS: Strep Grp B PCR NEG for Grp B Strep
== END ==
PROVIDERS: PCP Student in an Organized Health Care Education/Training Program; Visit Provider Specialist
DX: Z34.83 Encounter for supervision of other normal pregnancy, third trimester (principal); Z3A.36 36 weeks gestation of pregnancy
CPT/HCPCS: 87653

== ENCOUNTER 2023-12-19 23:27 | Inpatient (IN) | payer OTHER, MEDICAID, SELFPAY ==
[2023-12-20 00:27] VITALS: BP 113/68
[2023-12-20 02:05] LABS: Add Manual Diff / Slide Review NO; Basophils Absolute Auto 0 /uL (0-100); Basophils Percent Auto 0.4 % (0-2); Eosinophils Absolute Auto 100 /uL (0-450); Eosinophils Percent Auto 0.5 % (2-4); Hematocrit 34.8 % (36-46); Hemoglobin 12.1 g/dL (12.0-16.0); Lymphocytes Absolute Auto 2400 /uL (1100-4500); Lymphocytes Percent Auto 18.2 % (25-40); Mean Corpuscular HGB Conc 34.9 % (30-36); Mean Corpuscular Volume 91.8 fL (80-100); Monocytes Absolute Auto 1200 /uL (0-900); Monocytes Percent Auto 9.1 % (3-14); Neutrophils Absolute Auto 9500 /uL (1500-7000); Neutrophils Percent Auto 71.8 % (50-75); Platelet Count 213 X10^3/uL (150-400); Red Blood Cell Count 3.79 X10^6/uL (4.0-5.2); Red Cell Distribution Width 13.6 % (11.6-14.8); White Blood Cell Count 13.2 X10^3/uL (4.5-11.0)
--- NOTE | 2023-12-20 02:11 | P.HPOB_ITS ---
OB HPI Date/Time Date of admission: 12/20/23 History of Present Condition Chief complaint: labor YOBANY Calculator 2 Estimated Delivery Date Method Current WG Current Estimate 01/14/24 LMP (Certain) 36w 3d Other Estimates 01/10/24 Ultrasound #1 37w 0d : 4 Para: 2 Narrative: 28 yo at 36w3d with consistent contractions and back pain. complicated by hx of precipitous deliveries and labor on nifedipine. 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 care: good care Dating criteria OB: LMP confirmed by 1st trimester US Ultrasounds: normal 1st trimester US and normal mid trimester US Obstetrical complications: none Medical complications OB: none Preadmission Labs Last OB Lab Results: 2 Blood Type B Positive 12/20/23 01:22 Antibody Screen Negative 12/20/23 01:22 Hct 34.8 % (36-46) L 12/20/23 01:22 Hgb 12.1 g/dL (12.0-16.0) 12/20/23 01:22 Hep Bs Antigen Negative s/c (NEGATIVE) 05/23/23 13:05 Hepatitis C Antibody Negative s/c (NEGATIVE) 06/25/23 14:06 Rubella Antibody 21.7 IU/mL (>15) 05/23/23 13:05 VZV IgG Antibody 726 index (Immune >165) 06/25/23 14:06 Glucose 1 Hr 50 gm 76 mg/dL (76-139) 10/04/23 09:48 Hemoglobin A1c 5.2 % (4.6-6.2) 04/25/17 09:36 Group B Strep (PCR) Neg for grp b strep 10/11/23 17:55 Glucose Tolerance Testin hr Genetic Screens: Cell-free DNA: Normal (XY) Prior (ies) Past Pregnancies Del. Date GA/Weeks Labor Lgth Wt Sex Route Outcome Anesthesia Place Delv Breastfeed Preg Comp Name 08/12/13 8 elective 11/23/16 40 2 6 lb 9 oz Female vaginal live - full term IH 8 months other Jaxson 02/21/22 38.3 6 lb 14 oz Male vaginal live - full term e pidural IH 6 months none Caleb Delivery Date: 08/12/13 Last Updated by: Mala Yoselin, R.N. medical , no D&C required, no complications Delivery Date: 11/23/16 Last Updated by: Mala Wyatt R.N. low BP with fainting, excessive n/v, precipitous delivery Evaluation Evaluation Baseline heart rate: 125 Variability: Average (6-10) monitor accelerations: Present Monitor Decelerations: Absent Contraction Frequency (minutes): 4 Uterine Contraction Intensity: Moderate Category of Tracing: Reactive Status: Category l Dilation (cm): 4 Effacement (%): 90 PFSH Medical History RUQ abdominal pain Anxiety and depression (~2015) Hypothyroidism (~2016) Ovarian cyst (~2011) Chicken pox (~1993) Infertility (~2020) Abnormal Pap smear of cervix (~2014) Viral URI Chronic fatigue Right wrist sprain Depression Elevated TSH Suicidal ideation Alcohol intoxication Laceration of chin Surgical History Anesthesia S/P skin biopsy History of tonsillectomy [place] teeth extracted Family History Grandmother Diabetes mellitus Lung cancer Smoker Grandfather Stroke Myocardial infarction Hypertension History of heart disease Grandfather Stroke Family/Other Malignant hyperthermia Multiple sclerosis Father Hypertension HPV (human papilloma virus) infection Cancer Mother Pre-diabetes Sister Schizophrenia Bipolar disorder Social History marital status: unmarried,living together number of children: 2 household members: spouse, children and other lives independently: Yes caregiver/support person: Yes housing: house pets and animals: Yes (3 dogs) education level: college (associate's degree) occupational status: employed (NICU nurse) 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, rotating shifts) special yudith needs: No travel history: recent (domestic only) seatbelt use: always helmet use: Yes water heater temp set < 120 deg: Yes working smoke detector in home: Yes fire extinguisher in home: Yes carbon monox detector in home: Yes firearms in home: No do you feel safe at home: Yes Smoking Status: Never smoker second hand exposure: No alcohol intake: former (~1 day/week when not ) substance use type: does not use during the past year weight has: remained stable well-balanced diet: about half the time daily servings fruits/ve-4 caffeine: Yes (1-2 shots espresso on work days) Type(s) of exercise: walking Meds Home Medications and Allergies Home Medications Medication Instructions Recorded Confirmed Type prenat.vits,shiva,kuh-venn-kgnrh 1 tab PO DAILY 08/02/21 12/19/23 History Allergies Allergy/AdvReac Type Severity Reaction Status Date / Time Sulfa (Sulfonamide Allergy Severe SWOLLEN Verified 12/19/23 10:00 Antibiotics) THROAT [SULFA (SULFONAMIDE ANTIBIOTICS)] Objective Labs 12/20/23 01:22 Labs: Laboratory Results - last 24 hr 12/20/23 01:22 WBC 13.2 H RBC 3.79 L Hgb 12.1 Hct 34.8 L MCV 91.8 MCH 32.0 MCHC 34.9 RDW 13.6 Plt Count 213 Neut % (Auto) 71.8 Lymph % (Auto) 18.2 L Pershing % (Auto) 9.1 Eos % (Auto) 0.5 L Baso % (Auto) 0.4 Neut # (Auto) 9500 H Lymph # (Auto) 2400 Pershing # (Auto) 1200 H Eos # (Auto) 100 Baso # (Auto) 0 Assessment and Plan Assessment and Plan Assessment and Plan narrative: 28 yo here at 36w3d with spontaneous labor. complicated by labor on nifedipine. Hx of precipitous/quick deliveries. -admission to active labor -will start ampicillin for unknown GBS status and prematurity -anticipate vaginal delivery Time-Based Coding :: 30 minutes spent with patient and on the chart (including review of chart, obtaining history, exam, reviewing outside data, placing orders, documenting exam and treatment plan, and counseling patient) on 12/19.
--- NOTE | 2023-12-20 02:37 | PM.AN.REGBLK ---
[facility] <Sergio Cabrera, DO - Last Filed: 12/20/23 03:10> Pre-procedure Procedure: Continuous Lumbar Epidural for L&D Attending OB provider: Tiffanie Heard PMH/ROS narrative: From OB note: 28 yo at 36w3d with consistent contractions and back pain. complicated by hx of precipitous deliveries and labor on nifedipine. 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 PSH/Anesthesia history narrative: Pt reports hypotension and syncope/near syncope requiring intervention with last epidural, low baseline BP, tendency to faint. ASA Class: II Labs: Hct 34.8 % (36-46) L 12/20/23 01:22 Plt Count 213 X10^3/uL (150-400) 12/20/23 01:22 Medications: Current Medications Generic Name Dose Route Start Last Admin Trade Name Freq PRN Reason Stop Dose Admin Calcium Carbonate 1,000 mg 12/20/23 01:49 Calcium Carbonate 500 Mg Tab PO Q2HR PRN Dyspepsia Carboprost Tromethamine 250 mcg 12/20/23 01:49 Carboprost 250 Mcg/Ml Ampul IM Q90M PRN Bleeding Fentanyl 50 mcg 12/20/23 01:49 Fentanyl 100 Mcg/2 Ml Inj IV Q1H PRN Pain, Moderate (4-6) Oxytocin/Lactated Ringer's 30 unit in 500 mls @ 200 mls/hr 12/20/23 01:49 Oxytocin Premix IV CONT PRN Bleeding Protocol Tranexamic Acid 1,000 mg/ 100 mls @ 600 mls/hr 12/20/23 01:49 Sodium Chloride IV NOW PRN Bleeding Lactated Ringer's 1,000 mls @ 100 mls/hr 12/20/23 02:00 Lactated Ringers IV 12/20/23 11:59 CONT PETE Ampicillin Sodium 1,000 mg/ 100 mls @ 200 mls/hr 12/20/23 05:00 Sodium Chloride IV Q4H PETE Lidocaine HCl 20 ml 12/20/23 01:49 Lidocaine 1% 20 Ml INJ INTRA-OP PRN Post Delivery Methylergonovine Maleate 0.2 mg 12/20/23 01:49 Methylergonovine 0.2 Mg Tablet PO Q6HR PRN Heavy Bleeding Methylergonovine Maleate 0.2 mg 12/20/23 01:49 Methylergonovine 0.2 Mg/Ml Vial IM NOW PRN Bleeding Mineral Oil 30 ml 12/20/23 01:49 Mineral Oil 30 Ml Udc TOP PRN PRN Version Misoprostol 800 mcg 12/20/23 01:49 Misoprostol 200 Mcg Tablet AZ NOW PRN Bleeding Misoprostol 400 mcg 12/20/23 01:49 Misoprostol 200 Mcg Tablet SL NOW PRN Bleeding Naloxone HCl 0.2 mg 12/20/23 01:49 Naloxone 0.4 Mg/Ml Vial IV Q2MIN PRN Opiate Reversal Ondansetron HCl 4 mg 12/20/23 01:49 Ondansetron 4 Mg/2 Ml Inj IV Q4HR PRN Nausea And Vomiting Oxytocin 10 unit 12/20/23 01:49 Oxytocin 10 Unit/Ml Vial IM NOW PRN Bleeding Allergies: Allergies Allergy/AdvReac Type Severity Reaction Status Date / Time Sulfa (Sulfonamide Allergy Severe SWOLLEN Verified 12/19/23 10:00 Antibiotics) THROAT [SULFA (SULFONAMIDE ANTIBIOTICS)] Procedure Insertion date: 12/20/23 Insertion time: 02:53 Prep/Local: betadine x3 and 1% lidocaine Interspace: L34 Patient position: sitting Needle: 18 gauge Hustead (CSE: 27g Pencan through Hustead, clear CSF, 0.4mL 0.25% bupiv MPF) Loss of resistance with: saline CATHIE at (cm): 4 Catheter placed at SKIN (cm): 10 Catheter in SPACE (cm): 6 Insertion: No CSF, No Blood, No Paresthesia with insertion, No Paresthesia with injection and No Test dose reaction Initial Medications TEST DOSE time: 02:55 TEST DOSE: 1.5% lidocaine with epinephrine 1:200k (mL): 3 Infusion INFUSION: 0.125% bupivacaine and with fentanyl 2 mcg/mL Initial rate (mL/hr): 6 Post-procedure Anesthesia date START: 12/20/23 Anesthesia time START: 02:47 <Shannon Duran CRNA - Last Filed: 12/30/23 09:27> Infusion Subsequent interventions: 1315: Request for epidural rate increase. Membranes were just ruptured which she could feel, using PCEA. Rate increased from 6mL/hr to 10mL/hr. -CLAUDE HERNANDEZ Post-procedure Anesthesia date END: 12/20/23 Anesthesia time END: 15:38 Post-procedure Anesthesia Assessment: Yes CV function: HR/BP stable, Yes Resp function: RR/sat/airway adequate, Yes Post-op hydration adequate, Yes Pain control adequate, Yes Nausea & vomiting absent, Yes Temperature > 36 C, Yes Mental status appropriate and No Anesthesia complications
[2023-12-20] MEDS: AMPICILLIN 1,000 MG in SODIUM CHLORIDE 0.9% 100 ML 200 MG IV ×2 (05:21→09:21)
[2023-12-20] MEDS: ePHEDrine 50 MG/ML VIAL 10 MG IV (06:27)
--- NOTE | 2023-12-20 09:35 | PM.OBPNLAB ---
Date/Time Date Patient Seen: 12/20/23 Time Patient Seen: 09:36 Pain Control Pain control: epidural Pelvic Exam Dilation (cm): 4 Effacement (%): 90 station: 0 Amniotic membrane status: Intact Contractions Contractions on admission: irregular Monitor mode: External Contraction intensity: Moderate Status status: Category l Heart Rate Baseline: 130 Monitor Accelerations: Present Monitor Decelerations: Absent Monitor Variability: Moderate Assessment and Plan Assessment: other (Patient with no significant change in her cervix and decreased contractions since admission and placement of the epidural catheter) Plan: begin patient augmentation
[2023-12-20] MEDS: OXYTOCIN PREMIX 30 UNIT/500 ML PLAST..BAG IV (09:36)
[2023-12-20] MEDS: LACTATED RINGERS 1,000 ML 100 ML IV (10:28)
[2023-12-20] MEDS: FENT 2MCG/ML BUPIV 0.125% EPI 200 MCG/100 ML PLAST..BAG 6 MCG EPIDURAL (10:49)
[2023-12-20] MEDS: CALCIUM CARBONATE 500 MG TAB 1000 MG PO (11:10)
[2023-12-20] MEDS: ACETAMINOPHEN 325 MG TABLET 650 MG PO ×2 (11:55→18:50)
--- NOTE | 2023-12-20 13:05 | PM.OBPNLAB ---
Date/Time Date Patient Seen: 12/20/23 Time Patient Seen: 13:05 Pain Control Pain control: epidural Pelvic Exam Dilation (cm): 5 Effacement (%): 90 station: -1 Amniotic membrane status: Ruptured (AROM clear fluid) Contractions Contractions on admission: regular Monitor mode: External Pitocin rate (mU/min): 6 Contraction duration (min): 1 Contraction pattern: Regular Contraction intensity: Moderate Status status: Category l Heart Rate Baseline: 125 Monitor Accelerations: Present Monitor Decelerations: Absent Monitor Variability: Moderate Assessment and Plan Plan: continuous present management Comments: Discussion of 36 week 3 day gestation admitted at 4 cm dilated which was a change from 1-2 the day before. At that time to it was thought she was in active labor. She received an epidural catheter. She did not have any significant cervical change. Because of the history of fast labors, decision was made to proceed with augmentation of labor as safe for than the patient being sent home and having a precipitous delivery at home or in the car. Patient had 10 week ultrasound size slightly larger than dates but EDC not changed. 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 Patient did receive IV ampicillin for unknown group B strep which now has come back negative so no further antibiotics indicated. Anticipate vaginal delivery.
--- NOTE | 2023-12-20 16:03 | PM.OBPRVD ---
Events: Labor < 37 wks Labor & Delivery Delivery date: 12/20/23 Cervical ripening method: none Delivery augmentation: rupture of membranes and pitocin Delivery monitor: external FHT and external uterine Route of delivery: L&D Laceration Description: Vaginal - 1st Degree Delivery repair: chromic (3-0 chromic) Estimated blood loss (mL): 100 Anesthesia Type: Epidural Narrative: Patient arrived on Labor and delivery in presumed active labor. She received an epidural catheter for pain control. Patient had no further change in cervix and contractions stopped after. Decision due to her history of fast labors that it would be appropriate to continue with delivery rather than to remove the epidural and send the patient home. Pitocin was started. Patient had received several doses of IV ampicillin because of unknown group B strep. Her culture from the day before did finally come back and was negative so the antibiotics were stopped. Patient was AROM for clear fluid. heart tones category 1 to category 2 throughout labor. Patient was complete. With 2 contractions the patient delivered spontaneously over an intact perineum a viable male infant. The was placed on maternal abdomen. Delayed cord clamping was performed. The cord was clamped, cut, and cord bloods were obtained. The placenta delivered spontaneously, intact, with 3 vessels. There were no cervical tears. A first-degree midline posterior vaginal tear was repaired with 1 stitch of 3-0 chromic suture. No perineal tears. Estimated blood loss 100 cc. Both infant and mother doing well. [place] Baby 1: Infant gender: Male Presentation: vertex Position: Right Occiput Anterior Placenta delivery description: Spontaneous Cord Vessel Description: 3 Vessels score (1 min): 9 score (5 min): 9 Plan for aftercare: Routine care
[2023-12-20] MEDS: IBUPROFEN 600 MG TABLET PO ×2 (16:44→23:37)
[2023-12-20] MEDS: DERMOPLAST SPRAY 20% 60 ML 1 SPRAY TOP (18:51)
[2023-12-21] MEDS: OXYCODONE IR 5 MG TABLET PO ×4 (02:19→13:10)
[2023-12-21] MEDS: ACETAMINOPHEN 325 MG TABLET 650 MG PO ×3 (02:19→14:38)
[2023-12-21] MEDS: IBUPROFEN 600 MG TABLET PO ×3 (05:24→18:02)
[2023-12-21 05:59] LABS: Hematocrit 33.1 % (36-46); Hemoglobin 11.3 g/dL (12.0-16.0)
[2023-12-21] MEDS: PRENATAL VIT,CALC/IRON/FOLIC 1 TABLET 1 TAB PO (08:27)
[2023-12-21] MEDS: DOCUSATE 100 MG CAPSULE PO (08:28)
--- NOTE | 2023-12-21 09:22 | P.DS_ITS ---
Discharge Providers Provider Date of admission: 12/19/23 23:27 Discharge Date: 12/21/23 Primary care physician: Margarita Bartholomew MD Consults: 12/20/23 01:49 Consult to Anesthesiology Urgent Comment: Consulting Provider: Sergio Cabrera Reason for consultation: Epidural 12/21/23 16:00 Consult to Occupational Therapy Professor Routine Comment: Discharge provider: Sonia Manzano MD Summary Hospital Course Date Patient Seen: 12/21/23 Time Patient Seen: 09:23 Diagnoses: 36 week gestation in labor with spontaneous vaginal delivery Hospital Course: Patient arrived on Labor and delivery in labor 36 weeks 3 days. She received an epidural catheter for pain control. She received Pitocin augmentation and AROM. She had a spontaneous vaginal delivery of a viable male with repair of a first-degree tear. She is having some difficulty with pain control from the contractions of her uterus. This happened with her last in lasted for 2 weeks. She is pumping and . She is urinating and ambulating well. She denies any problems with headaches. Peripartum Data Infant Delivery Method: Natural Vaginal Laceration Description: Vaginal - 1st Degree Procedures: Epidural catheter, spontaneous vaginal delivery with repair of first-degree tear complications: none 1: Gender: Male Disposition of : home Status at Discharge Cognitive/behavioral status at discharge: oriented Functional status at discharge: independent ambulation Overall status at discharge: patient is progressing back to baseline Time Spent with Patient Time attestation: Total time spent providing and/or coordinating discharge services: Time spent: Less than 30 minutes Objective Labs 12/21/23 05:50 Labs: Laboratory Results - last 24 hr 12/21/23 05:50 Hgb 11.3 L Hct 33.1 L Exam Vital Signs (past 8 hours): Blood pressure 106/61, pulse of 56, temperature 37? Narrative Exam Narrative: Abdomen is soft, nontender. Uterus is firm, at U -1, nontender. Mild lochia. Extremities without edema and nontender. Discharge Plan Discharge Plan Patient Disposition: Home Discharge orders & Medications Prescriptions: New ibuprofen 600 mg Tablet 600 mg PO Q6HR PRN (Reason: Pain, Mild (1-3)) Qty: 30 0RF oxycodone 5 mg tablet 5 mg PO Q3H PRN (Reason: pain) Qty: 40 0RF Follow up/Referrals: Margarita Bartholomew MD [Primary Care Provider] - Madiha Ordaz MD [Physician] - 6 Weeks Diet/Activity/Treatments Diet: Regular Activity: Nothing in vagina for 6 weeks Skin/Wound/Dressing Care Report to your healthcare provider any signs of infection, such as:: chills, fever and increased pain Visit Report/Discharge Packet Instructions: DI for Prescription Opioid Use Stand Alone Forms: Patient Portal/API, Stroke Signs & Symptoms Discharge Data Primary Care Provider: Margarita Bartholomew Attending Provider: Tiffanie Heard Admit Date/Time: 12/19/23 23:27
[2023-12-21] MEDS: OXYCODONE IR 10 MG TABLET PO (16:02)
[2023-12-21 17:54] VITALS: BP 101/67; PULSE 69; RESP 16; TEMP 36.3
== END 2023-12-21 19:45 | disposition home or self-care (01) | DRG 807 ==
PROVIDERS: Specialist; Admitting Provider Student in an Organized Health Care Education/Training Program; PCP Student in an Organized Health Care Education/Training Program; Referring Provider Student in an Organized Health Care Education/Training Program; Visit Provider Student in an Organized Health Care Education/Training Program
DX: O60.14X0 Preterm labor third trimester with preterm delivery third trimester, not applicable or unspecified (principal); Z37.0 Single live birth; O70.0 First degree perineal laceration during delivery; Z3A.36 36 weeks gestation of pregnancy
CPT/HCPCS: 36415; 59050; 59400; 59409; 85014; 85018; 85025; 86850; 86900; 86901; 87653; G0378; G0379; J0290; J2590

== ENCOUNTER → 2024-02-05 13:35 | Outpatient (CLI) | payer OTHER, MEDICAID, SELFPAY ==
--- NOTE | 2024-02-05 13:36 | DI.US.S_ITS ---
LIMITED ULTRASOUND OF LEFT BREAST AND AXILLA: 02/05/2024 CLINICAL: Diffuse left breast pain. No prior exams were available for comparison. Color flow and real-time ultrasound of the left breast 11-4 o'clock, and axilla regions were performed on the areas of interest. King scale images of the real-time examination were reviewed. IMPRESSION: NEGATIVE There is no sonographic evidence of malignancy. There is no sonographic abnormality seen in the left breast to correspond with the area of clinical concern, however, clinical followup is recommended. This exam was interpreted at Station ID: [id number]. Electronically Signed By: Leonie Cali M.D. lk/:02/05/2024 14:29:57 letter sent: Clinical Evaluation ACR BI-RADS Category 1: Negative
== END ==
PROVIDERS: PCP Student in an Organized Health Care Education/Training Program; Referring Provider Obstetrics & Gynecology; Visit Provider Obstetrics & Gynecology
DX: O91.23 Nonpurulent mastitis associated with lactation (principal)
CPT/HCPCS: 76642

== ENCOUNTER → 2024-08-19 15:02 | Outpatient (CLI) | payer OTHER, SELFPAY ==
[2024-08-23 18:36] LABS: Calprotectin, Stool 8 ug/g (0-120)
== END ==
PROVIDERS: PCP Student in an Organized Health Care Education/Training Program; Referring Provider Physician Assistant; Visit Provider Physician Assistant
DX: R10.30 Lower abdominal pain, unspecified (principal); R19.7 Diarrhea, unspecified
CPT/HCPCS: 83993; 87045

== ENCOUNTER → 2024-12-03 09:08 | Outpatient (CLI) | payer OTHER, SELFPAY ==
--- NOTE | 2024-12-03 09:09 | DI.MG.S_ITS ---
US breast RT limited, MM diagnostic mammo BI: 12/03/2024 BI-RADS: 1 CLINICAL: 29-year old female for bilateral diagnostic mammogram and right diagnostic breast ultrasound. Tyrer-Cuzick lifetime risk of 9.0%. No personal or first- degree family history of breast cancer. The patient reports a palpable abnormality (less than 1 month) in the right breast. PRIOR EXAMS: None. This is a baseline examination. MAMMOGRAPHY TECHNIQUE: 2D and 3D (tomosynthesis) digital mammographic views obtained, with additional images as needed for full coverage. Current study was also evaluated with a Computer Aided Detection (CAD) system. ULTRASOUND TECHNIQUE: Real-time mcintosh scale imaging of the area of clinical interest was performed with image documentation. TARGETED Right Breast Ultrasound: Real-time ultrasound exam was performed focused to area of clinical and/or imaging concern. DENSITY C. The breasts are heterogeneously dense, which may obscure small masses. MAMMOGRAPHY FINDINGS Right (finding-1): Inner Central, Anterior depth: A skin marker was placed in the area of concern, and no mammographic abnormalities are identified or to account for concern by the patient of a palpable lump. No suspicious mass, asymmetry, microcalcification, or other abnormality seen. Left: No suspicious mass, asymmetry, microcalcification, or other abnormality seen. ULTRASOUND FINDINGS Right (finding-1): Upper Inner at 2:00, 1 cm from nipple: Underlying the surface marker, there is no sonographic abnormality to account for concern by the patient of a palpable lump. IMPRESSION: * No evidence of malignancy. RECOMMENDATIONS Right * Clinical follow-up is recommended, and further management of palpable abnormalities or other focal signs or symptoms should be based on the results of clinical evaluation. If palpable abnormality or other concerning symptom persists or progresses, further clinical evaluation should be considered. Bilateral * Annual screening mammography beginning at age 40. COMMENTS: Findings and recommendations were conveyed to the patient during today's evaluation. OVERALL ASSESSMENT CATEGORY BI-RADS-1: Negative. The [employer] recommends annual screening mammography beginning at age 40 for women with average risk of breast cancer. ELECTRONICALLY SIGNED: Catherine Hernandez M.D. on 12/03/2024 at 12:54:51 PM PT Interpreting Station ID: [id number]
== END ==
LOC: MAMMO 09:09
PROVIDERS: Referring Provider Student in an Organized Health Care Education/Training Program; Visit Provider Student in an Organized Health Care Education/Training Program
DX: N63.10 Unspecified lump in the right breast, unspecified quadrant (principal); R92.333 Mammographic heterogeneous density, bilateral breasts
CPT/HCPCS: 76642; 77066; G0279